=== PATIENT | male | born 1965 | race Caucasian/White ===

== ENCOUNTER 2019-04-14 01:28 | Inpatient (IN) | payer OTHER ==
[2019-04-14 02:58] LABS: ABS Basophils 0.1 10^3/ul (0-0.2); ABS Monocytes 0.9 10^3/ul (0-0.8); ABS Neutrophils 8.3 10^3/ul (1.5-7.7); Hematocrit 52 % (42-52); Hemoglobin 17.8 g/dL (14.0-18.0); Lymphocyte % 9.9 %; Mean Corpuscular HGB Conc 35 g/dL (31-36); Mean Corpuscular Hemoglobin 34 pg (27-31); Mean Corpuscular Volume 97 fL (80-94); Mean Platelet Volume 7.7 fL (7.4-10.4); Platelet Count 186 10^3/uL (150-450); Red Blood Count 5.33 10^6 /uL (4.18-5.48); Red Cell Distribution Width 13 % (10-15); White Blood Count 10.3 10^3/uL (3.5-10.8)
[2019-04-14 03:06] LABS: INR 1.06 (0.82-1.09)
[2019-04-14] MEDS ORDERED: NS 0.9% 1000 ML** 1,000 ML IV ONE ×2 (03:07→18:22)
[2019-04-14] MEDS ORDERED: Ketorolac INJ* 30 MG/ML 1 ML VIAL IV PUSH ONE (03:07)
[2019-04-14 03:15] LABS: Albumin 4.5 g/dL (3.2-5.2); Albumin/Globulin Ratio 1.4 (1-3); BUN/Creatinine Ratio 11.2 (8-20); C Reactive Protein 28.36 mg/L (<8.01); Calcium 9.1 mg/dL (8.6-10.3); EGFR African American 108.2 (>60); EGFR Non-African American 89.4 (>60); Globulin 3.3 g/dL (2-4); Potassium 3.7 mmol/L (3.5-5.0); Total Bilirubin 0.7 mg/dL (0.2-1.0); Total Protein 7.8 g/dL (6.4-8.9)
[2019-04-14] MEDS ORDERED: Iohexol 300* (CONTRAST) 10 ML SDV IV ONE (03:45)
--- NOTE | 2019-04-14 04:25 | ED ---
Abdominal Pain/Male - HPI Summary HPI Summary: Patient is a 53 y/o M presenting to the ED for a chief complaint of diffuse non- radiating abdominal pain that began on 04/13/19. Patient states that he ate 2 pizzas in quick succession after which he began to feel the diffuse abdominal pain, nausea, vomiting, diaphoresis, and diarrhea. Patient denies fever. Patient took Imodium for the diarrhea with limited relief. Patient has not had a bowel movement since 04/12/19. On 04/13/19, patient also admits drinking alcohol. Patient denies tobacco or drug use. Patient has a PMHx of HTN, anxiety , and depression. Allergies noted. - History of Current Complaint Chief Complaint: EDAbdPain Stated Complaint: ABD PAIN PER PT Time Seen by Provider: 04/14/19 02:30 Hx Obtained From: Patient Onset/Duration: Sudden Onset, Still Present Timing: Constant Severity Initially: Severe Severity Currently: Severe Pain Intensity: 9 Pain Scale Used: 0-10 Numeric Location: Diffuse Radiates: No Aggravating Factor(s): Nothing Alleviating Factor(s): Other: - Limited relief of diarrhea with Imodium Associated Signs And Symptoms: Positive: Nausea, Vomiting, Diarrhea, Other - Positive diaphoresis. Negative: Fever - Allergies/Home Medications Allergies/Adverse Reactions: Allergies Allergy/AdvReac Type Severity Reaction Status Date / Time No Known Allergies Allergy Verified 04/14/19 01:34 Home Medications: Home Medications Clonazepam 45 mg PO SEE INSTRUCTIONS 04/14/19 [History Confirmed 04/14/19] Duloxetine HCl 30 mg PO DAILY 04/14/19 [History Confirmed 04/14/19] Lisinopril 20 mg PO DAILY 04/14/19 [History Confirmed 04/14/19] PMH/Surg Hx/FS Hx/Imm Hx Previously Healthy: Yes Endocrine/Hematology History: Denies: Hx Diabetes Cardiovascular History: Reports: Hx Hypertension Denies: Hx Hypercholesterolemia Sensory History: Denies: Hx Legally Blind, Hx Deafness Opthamlomology History: Denies: Hx Legally Blind EENT History: Denies: Hx Deafness Psychiatric History: Reports: Hx Anxiety, Hx Depression - Surgical History Surgical History: None Surgery Procedure, Year, and Place: None Infectious Disease History: No Infectious Disease History: Denies: Traveled Outside the [place] in Last 30 Days - Family History Known Family History: Negative: Diabetes - Social History Occupation: Employed Full-time Lives: With Family Alcohol Use: Daily Hx Substance Use: No Substance Use Type: Reports: None Hx Tobacco Use: No Smoking Status (MU): Never Smoked Tobacco Review of Systems - ROS Summary Review of Systems Summary: Clonazepam 45 mg PO SEE INSTRUCTIONS 04/14/19 [History Confirmed 04/14/19] Duloxetine HCl 30 mg PO DAILY 04/14/19 [History Confirmed 04/14/19] Lisinopril 20 mg PO DAILY 04/14/19 [History Confirmed 04/14/19] Positive: Skin Diaphoresis. Negative: Fever Positive: Abdominal Pain - Diffuse, Vomiting, Diarrhea, Nausea All Other Systems Reviewed And Are Negative: Yes Physical Exam - Summary Physical Exam Summary: General: Well-developed, Well-nourished MALE. Moderate distress. HEENT: Normocephalic, Atraumatic. Eyes: Conjuctiva normal, PERRL. Ears: TMs within normal limits. Nares: (-) discharge, (-) erythema. Oropharynx: Clear, mucous membranes moist, (-) exudates. Neck: Soft, FROM, (-) lymphadenopathy, (-) thyromegaly, (-) JVD. Cardiovascular: Normal sinus rhythm, (-) murmur. Lungs: Clear to auscultation bilaterally (-) wheezes, (-) rales, (-) rhonchi. Abdomen: Non-distended, (-) organomegaly, normal bowel sounds. Abdomen is firm with diffuse moderate tenderness throughout. Back: (-) CVA tenderness Extremities: No edema. Skin: Warm, dry, (-) rash. Neuro: Alert and oriented x3, no focal deficits. Psychiatric: Mood normal, affect normal. Triage Information Reviewed: Yes Vital Signs On Initial Exam: Initial Vitals Temp Pulse Resp BP Pulse Ox 96.8 F 102 18 156/113 96 04/14/19 01:31 04/14/19 01:31 04/14/19 01:31 04/14/19 01:31 04/14/19 01:31 Vital Signs Reviewed: Yes Procedures - Sedation Patient Received Moderate/Deep Sedation with Procedure: No Diagnostics - Vital Signs Vital Signs Temp Pulse Resp BP Pulse Ox 04/14/19 03:35 79 164/94 91 04/14/19 03:20 98.0 F 04/14/19 03:04 88 147/100 93 04/14/19 03:00 85 94 04/14/19 02:59 90 94 04/14/19 01:31 96.8 F 102 18 156/113 96 - Laboratory Lab Results: Lab Results 04/14/19 04/14/19 04/14/19 Range/Units 02:50 02:50 02:50 WBC 10.3 (3.5-10.8) 10^3/uL RBC 5.33 (4.18-5.48) 10^6 /uL Hgb 17.8 (14.0-18.0) g/dL Hct 52 (42-52) % MCV 97 H (80-94) fL MCH 34 H (27-31) pg MCHC 35 (31-36) g/dL RDW 13 (10-15) % Plt Count 186 (150-450) 10^3/uL MPV 7.7 (7.4-10.4) fL Neut % (Auto) 80.4 % Lymph % (Auto) 9.9 % [place] % (Auto) 9.2 % Eos % (Auto) 0.0 % Baso % (Auto) 0.5 % Absolute Neuts (auto) 8.3 H (1.5-7.7) 10^3/ul Absolute Lymphs (auto) 1.0 (1.0-4.8) 10^3/ul Absolute Monos (auto) 0.9 H (0-0.8) 10^3/ul Absolute Eos (auto) 0.0 (0-0.6) 10^3/ul Absolute Basos (auto) 0.1 (0-0.2) 10^3/ul Absolute Nucleated RBC 0.0 10^3/ul Nucleated RBC % 0.0 INR (Anticoag Therapy) 1.06 (0.82-1.09) Sodium 134 L (135-145) mmol/L Potassium 3.7 (3.5-5.0) mmol/L Chloride 96 L (101-111) mmol/L Carbon Dioxide 24 (22-32) mmol/L Anion Gap 14 H (2-11) mmol/L BUN 10 (6-24) mg/dL Creatinine 0.89 (0.67-1.17) mg/dL Est GFR ( Amer) 108.2 (>60) Est GFR (Non-Af Amer) 89.4 (>60) BUN/Creatinine Ratio 11.2 (8-20) Glucose 148 H (70-100) mg/dL Lactic Acid (0.5-2.0) mmol/L Calcium 9.1 (8.6-10.3) mg/dL Total Bilirubin 0.70 (0.2-1.0) mg/dL AST 77 H (13-39) U/L ALT 77 H (7-52) U/L Alkaline Phosphatase 64 (34-104) U/L C-Reactive Protein 28.36 H (<8.01) mg/L Total Protein 7.8 (6.4-8.9) g/dL Albumin 4.5 (3.2-5.2) g/dL Globulin 3.3 (2-4) g/dL Albumin/Globulin Ratio 1.4 (1-3) Amylase 1206 H (29-103) U/L Lipase 3412 H (11.0-82.0) U/L Serum Alcohol 164 H (<10) mg/dL 04/14/19 Range/Units 02:50 WBC (3.5-10.8) 10^3/uL RBC (4.18-5.48) 10^6 /uL Hgb (14.0-18.0) g/dL Hct (42-52) % MCV (80-94) fL MCH (27-31) pg MCHC (31-36) g/dL RDW (10-15) % Plt Count (150-450) 10^3/uL MPV (7.4-10.4) fL Neut % (Auto) % Lymph % (Auto) % [place] % (Auto) % Eos % (Auto) % Baso % (Auto) % Absolute Neuts (auto) (1.5-7.7) 10^3/ul Absolute Lymphs (auto) (1.0-4.8) 10^3/ul Absolute Monos (auto) (0-0.8) 10^3/ul Absolute Eos (auto) (0-0.6) 10^3/ul Absolute Basos (auto) (0-0.2) 10^3/ul Absolute Nucleated RBC 10^3/ul Nucleated RBC % INR (Anticoag Therapy) (0.82-1.09) Sodium (135-145) mmol/L Potassium (3.5-5.0) mmol/L Chloride (101-111) mmol/L Carbon Dioxide (22-32) mmol/L Anion Gap (2-11) mmol/L BUN (6-24) mg/dL Creatinine (0.67-1.17) mg/dL Est GFR ( Amer) (>60) Est GFR (Non-Af Amer) (>60) BUN/Creatinine Ratio (8-20) Glucose (70-100) mg/dL Lactic Acid 2.3 H* (0.5-2.0) mmol/L Calcium (8.6-10.3) mg/dL Total Bilirubin (0.2-1.0) mg/dL AST (13-39) U/L ALT (7-52) U/L Alkaline Phosphatase (34-104) U/L C-Reactive Protein (<8.01) mg/L Total Protein (6.4-8.9) g/dL Albumin (3.2-5.2) g/dL Globulin (2-4) g/dL Albumin/Globulin Ratio (1-3) Amylase (29-103) U/L Lipase (11.0-82.0) U/L Serum Alcohol (<10) mg/dL Result Diagrams: 04/14/19 02:50 04/14/19 02:50 Lab Statement: Any lab studies that have been ordered have been reviewed, and results considered in the medical decision making process. - Radiology Chest X-ray Radiology Interpretation Completed By: ED Physician Summary of Radiographic Findings: Chest X-ray IMPRESSION: No infiltrate. No pleural effusion. Reviewed and interpreted by Dr. Myles; pending official radiology report. - CT Abdomen/Pelvis CT CT Interpretation Completed By: Radiologist Summary of CT Findings: Abdomen/Pelvis CT IMPRESSION: 1. Acute pancreatitis. 2. Mild hepatomegaly with fatty infiltration. 3. Minimal free fluid in the pelvis which is likely related to the pancreatitis. Reviewed by ED physician. Re-Evaluation - Re-Evaluation First Re-Evaluation Time: 05:17 Change: Unchanged Comment: At 05:17, upon re-evaluation, will give the patient morphine. Abdominal Pain Male Course/Dx - Course Course Of Treatment: 53-year-old male with severe abdominal pain. History of vomiting. Patient describes himself as a heavy alcohol drinker. Found to have significantly amylase and lipase as well as alcohol level. CT demonstrates acute pancreatitis. Patient given IV fluids and pain medication. Referred to hospitalist for admission. - Diagnoses Provider Diagnoses: Pancreatitis, Acute alcohol intoxication - Provider Notifications Discussed Care Of Patient With: Chayo Coyne - At 05:31, Dr. Chayo Coyne agrees to admit the patient to [facility] with a diagnosis of pancreatitis and acute alcohol intoxication. Time Discussed With Above Provider: 05:31 Instructed by Provider To: Admit As Inpatient Discharge ED - Sign-Out/Discharge Documenting (check all that apply): Patient Departure - Admit - Discharge Plan Condition: Stable Disposition: ADMITTED TO [facility] Referrals: [facility] [Outside] - Billing Disposition and Condition Condition: STABLE Disposition: Admitted to [facility] - Attestation Statements Document Initiated by Eder: Yes Documenting Scribe: Alyx Casillas Provider For Whom Scribe is Documenting (Include Credential): Gianna Mlyes MD Scribe Attestation: Alyx Martinez scribed for Gianna Myles MD on 04/14/19 at 0603. Scribe Documentation Reviewed: Yes Provider Attestation: The documentation as recorded by the Alyx balbuena accurately reflects the service I personally performed and the decisions made by Gianna valladares MD Status of Scribe Document: Viewed
[2019-04-14 05:03] LABS: Urine Appearance Clear; Urine Bacteria Absent (Absent); Urine Bilirubin Negative (Negative); Urine Blood 2+ (Negative); Urine Color Yellow; Urine Glucose 1+(50 mg/dL) (Negative); Urine Ketones 1+ (Negative); Urine Nitrite Negative (Negative); Urine Protein 1+(30 mg/dL) (Negative); Urine Red Blood Cell 1+(3-5/hpf) (Absent); Urine Specific Gravity 1.045 (1.010-1.030); Urine Squamous Epithelial Cell Present (Absent); Urine Urobilinogen Negative (Negative); Urine White Blood Cell Trace(0-5/hpf) (Absent)
[2019-04-14] MEDS ORDERED: Morphine 4 MG/ML VIAL (1 ml) 4 MG/ML VIAL IV ONE (05:17)
[2019-04-14] MEDS ORDERED: Morphine INJ* 2 MG/ML 1 ML SYRINGE (TWO MG - NEW SYRINGE VERSION) IV PRN (07:09)
[2019-04-14] MEDS ORDERED: Thiamine IV 100 MG, Folic Acid IV* 1 MG, Multiple Vitamin IV ADULT* 10 ML in D5NS 0.9% ... IV ONE (07:10)
[2019-04-14] MEDS ORDERED: NS 0.9% 1000 ML** 1,000 ML IV SCH (07:15)
--- NOTE | 2019-04-14 07:28 | HP ---
History of Present Illness - History of Present Illness Reason for Visit: abdominal pain History of Present Illness: 53 year old male with hx of depression and alcohol abuse presented with severe epigastric pain after binge drinking. Pain started around 11 pm last night after drinking 1/4 of a bottle of alcohol and pizza. He vomited multiple times ( no blood) before he called the ambulance. In the ED, CT abdomen showed pancreatitis, lipase and amylase were quite elevated. This is his first time having pancreatitis. Pt currently works at [employer]. He struggled with his alcoholism for a while and relapsed 6 months ago when he moved from [place] to [place] for his new job. The separation from his gf and the stress of starting a new job in a new city were enough to cause him to relapse. He had a psychiatrist back in [facility] who was prescribing him cymbalta for his depression which he is no longer on. Last drink around 11 pm last night. Never had withdrawals before. - Past Medical History Cardiac: HTN, Hyperlipidemia Review of Systems - Measurements Intake and Output: Intake and Output Last 24 Hours 04/12/19 04/13/19 04/14/19 04/15/19 06:59 06:59 06:59 06:59 Intake Total 1000 Balance 1000 Weight 250 lb Intake: IV Fluids 1000 - Review of Systems Constitutional Symptoms: Positive: Fatigue Dermatology: Positive: Normal HEENT: Positive: Normal Eyes: Positive: Normal Thyroid: Positive: Normal Pulmonary: Positive: Normal Cardiology: Positive: Normal Gastroenterology: Positive: Abdominal Pain, Nausea, Vomiting Endocrinology: Positive: Normal Neurology: Positive: Normal Objective Active Medications: Sodium Chloride (Ns 0.9% 1000 Ml) 1,000 mls @ 125 mls/hr IV Q8H [facility] Thiamine HCl 100 mg/ Folic Acid 1 mg/ Multivitamins 10 ml / Dextrose/Sodium Chloride 1,011.2 mls @ 252.8 mls/hr IV ED ONCE ONE Stop: 04/14/19 11:09 Morphine Sulfate (Morphine Inj (Syringe))*) 2 mg IV Q4H PRN PRN Reason: PAIN - SEVERE Vital Signs - 8 hr 04/14/19 04/14/19 04/14/19 01:31 02:59 03:00 Temperature 96.8 F Pulse Rate 102 90 85 Respiratory 18 Rate Blood Pressure 156/113 (mmHg) O2 Sat by Pulse 96 94 94 Oximetry 04/14/19 04/14/19 04/14/19 03:04 03:20 03:35 Temperature 98.0 F Pulse Rate 88 79 Respiratory Rate Blood Pressure 147/100 164/94 (mmHg) O2 Sat by Pulse 93 91 Oximetry 04/14/19 04/14/19 04/14/19 04:00 04:31 04:59 Temperature Pulse Rate 88 95 90 Respiratory Rate Blood Pressure 168/101 173/95 (mmHg) O2 Sat by Pulse 93 93 96 Oximetry 04/14/19 04/14/19 04/14/19 05:00 05:05 05:31 Temperature Pulse Rate 88 99 Respiratory 22 Rate Blood Pressure 164/108 (mmHg) O2 Sat by Pulse 94 95 Oximetry Oxygen Devices in Use Now: None Appearance: depressed mood, tearful. Ears/Nose/Mouth/Throat: NL Teeth, Lips, Gums, - - dry mucous membrane Neck: NL Appearance and Movements; NL JVP Respiratory: Symmetrical Chest Expansion and Respiratory Effort Cardiovascular: NL Sounds; No Murmurs; No JVD Abdominal: NL Sounds; No Tenderness; No Distention Extremities: No Edema Skin: No Rash or Ulcers Neurological: Alert and Oriented x 3, NL Sensation, NL Gait, NL Muscle Strength and Tone Result Diagrams: 04/14/19 02:50 04/14/19 02:50 Additional Lab and Data: Lab Results 04/14/19 04/14/19 04/14/19 Range/Units 02:50 02:50 02:50 WBC 10.3 (3.5-10.8) 10^3/uL RBC 5.33 (4.18-5.48) 10^6 /uL Hgb 17.8 (14.0-18.0) g/dL Hct 52 (42-52) % MCV 97 H (80-94) fL MCH 34 H (27-31) pg MCHC 35 (31-36) g/dL RDW 13 (10-15) % Plt Count 186 (150-450) 10^3/uL MPV 7.7 (7.4-10.4) fL Neut % (Auto) 80.4 % Lymph % (Auto) 9.9 % [place] % (Auto) 9.2 % Eos % (Auto) 0.0 % Baso % (Auto) 0.5 % Absolute Neuts (auto) 8.3 H (1.5-7.7) 10^3/ul Absolute Lymphs (auto) 1.0 (1.0-4.8) 10^3/ul Absolute Monos (auto) 0.9 H (0-0.8) 10^3/ul Absolute Eos (auto) 0.0 (0-0.6) 10^3/ul Absolute Basos (auto) 0.1 (0-0.2) 10^3/ul Absolute Nucleated RBC 0.0 10^3/ul Nucleated RBC % 0.0 INR (Anticoag Therapy) 1.06 (0.82-1.09) Sodium 134 L (135-145) mmol/L Potassium 3.7 (3.5-5.0) mmol/L Chloride 96 L (101-111) mmol/L Carbon Dioxide 24 (22-32) mmol/L Anion Gap 14 H (2-11) mmol/L BUN 10 (6-24) mg/dL Creatinine 0.89 (0.67-1.17) mg/dL Est GFR ( Amer) 108.2 (>60) Est GFR (Non-Af Amer) 89.4 (>60) BUN/Creatinine Ratio 11.2 (8-20) Glucose 148 H (70-100) mg/dL Lactic Acid (0.5-2.0) mmol/L Calcium 9.1 (8.6-10.3) mg/dL Total Bilirubin 0.70 (0.2-1.0) mg/dL AST 77 H (13-39) U/L ALT 77 H (7-52) U/L Alkaline Phosphatase 64 (34-104) U/L C-Reactive Protein 28.36 H (<8.01) mg/L Total Protein 7.8 (6.4-8.9) g/dL Albumin 4.5 (3.2-5.2) g/dL Globulin 3.3 (2-4) g/dL Albumin/Globulin Ratio 1.4 (1-3) Amylase 1206 H (29-103) U/L Lipase 3412 H (11.0-82.0) U/L Serum Alcohol 164 H (<10) mg/dL 04/14/19 Range/Units 02:50 WBC (3.5-10.8) 10^3/uL RBC (4.18-5.48) 10^6 /uL Hgb (14.0-18.0) g/dL Hct (42-52) % MCV (80-94) fL MCH (27-31) pg MCHC (31-36) g/dL RDW (10-15) % Plt Count (150-450) 10^3/uL MPV (7.4-10.4) fL Neut % (Auto) % Lymph % (Auto) % [place] % (Auto) % Eos % (Auto) % Baso % (Auto) % Absolute Neuts (auto) (1.5-7.7) 10^3/ul Absolute Lymphs (auto) (1.0-4.8) 10^3/ul Absolute Monos (auto) (0-0.8) 10^3/ul Absolute Eos (auto) (0-0.6) 10^3/ul Absolute Basos (auto) (0-0.2) 10^3/ul Absolute Nucleated RBC 10^3/ul Nucleated RBC % INR (Anticoag Therapy) (0.82-1.09) Sodium (135-145) mmol/L Potassium (3.5-5.0) mmol/L Chloride (101-111) mmol/L Carbon Dioxide (22-32) mmol/L Anion Gap (2-11) mmol/L BUN (6-24) mg/dL Creatinine (0.67-1.17) mg/dL Est GFR ( Amer) (>60) Est GFR (Non-Af Amer) (>60) BUN/Creatinine Ratio (8-20) Glucose (70-100) mg/dL Lactic Acid 2.3 H* (0.5-2.0) mmol/L Calcium (8.6-10.3) mg/dL Total Bilirubin (0.2-1.0) mg/dL AST (13-39) U/L ALT (7-52) U/L Alkaline Phosphatase (34-104) U/L C-Reactive Protein (<8.01) mg/L Total Protein (6.4-8.9) g/dL Albumin (3.2-5.2) g/dL Globulin (2-4) g/dL Albumin/Globulin Ratio (1-3) Amylase (29-103) U/L Lipase (11.0-82.0) U/L Serum Alcohol (<10) mg/dL Assess/Plan/Problems-Billing Assessment: - Patient Problems (1) Pancreatitis Current Visit: Yes Status: Acute Code(s): K85.90 - ACUTE PANCREATITIS WITHOUT NECROSIS OR INFECTION, UNSP SNOMED Code(s): 27526238 Comment: secondary to alcoholism mild pancreatitis, no organ failure very dehydrated aggressive fluid management, NPO, morphine PRN liver US (2) Alcohol abuse Current Visit: Yes Status: Acute Code(s): F10.10 - ALCOHOL ABUSE, UNCOMPLICATED SNOMED Code(s): 12587551 Comment: last drink at 11 pm last night. banana bag CIWA protocol low maddrey score health care social worker consult (3) DVT prophylaxis Current Visit: Yes Status: Acute Code(s): Z29.9 - ENCOUNTER FOR PROPHYLACTIC MEASURES, UNSPECIFIED SNOMED Code(s): 442917221 Comment: heparin sc (4) Full code status Current Visit: Yes Status: Acute Code(s): Z78.9 - OTHER SPECIFIED HEALTH STATUS SNOMED Code(s): 746323404 (5) Depression Current Visit: Yes Status: Acute Code(s): F32.9 - MAJOR DEPRESSIVE DISORDER , SINGLE EPISODE, UNSPECIFIED SNOMED Code(s): 18740553 Comment: not on any medications, he used to be on cymbalta. team to consult psychologist personnel consult placed
[2019-04-14 07:57] LABS: HDL Cholesterol 76.2 mg/dL; Magnesium 1.3 mg/dL (1.9-2.7)
[2019-04-14] MEDS ORDERED: Lorazepam PYXIS KEY PRN ×2 (08:02→10:13)
[2019-04-14] MEDS ORDERED: LORazepam INJ* 2 MG/ML 1 ML VIAL IV PUSH PRN ×2 (08:02→08:17)
[2019-04-14] MEDS ORDERED: HYDROmorphone INJ* 0.5 MG/0.5 ML SYRINGE IV PRN (08:06)
[2019-04-14] MEDS ORDERED: Ondansetron INJ* 2 MG/ML VIAL IV PRN (08:19)
[2019-04-14] MEDS ORDERED: HYDROmorphone INJ1* 1 MG/ML SYRINGE IV PRN (09:00)
[2019-04-14] MEDS: LORazepam INJ* 2 MG/ML 1 ML VIAL IM SCH ×6 (09:34→20:48)
[2019-04-14] MEDS ORDERED: hydrALAZINE IV* 20 MG/ML VIAL IV SLOW PU PRN (10:16)
[2019-04-14] MEDS ORDERED: LORazepam INJ* 2 MG/ML 1 ML VIAL IV PUSH SCH ×2 (11:30→12:00)
[2019-04-14] MEDS: Enoxaparin(*) 40 MG/0.4 ML SYR SUBCUT SCH (11:46)
[2019-04-14 12:35] LABS: TSH (Thyroid Stimulating Horm) 4.42 mcIU/mL (0.34-5.60)
[2019-04-14] MEDS: Diazepam INJ* 5 MG/ML 10 ML VIAL (50 MG TOTAL) IV SCH ×2 (15:03→20:49)
[2019-04-14] MEDS: NS 0.9% 1000 ML** 1,000 ML IV SCH ×2 (15:04→22:34)
--- NOTE | 2019-04-14 17:10 | PN ---
Subjective Date of Service: 04/14/19 Interval History: Hd 2 on 04/14 53 y/o M with history of HTN and alcohol use disorder presents with acute severe epigastric pain associated with nausea and vomiting after drinking 4 drinks of vodka. Found to have Pancreatitis, Anion gap MA and alcohol intoxication. Has abdominal pain- diffuse -has tremor with sweating and flushing. Denies hallucination, nausea or vomiting Objective Active Medications: Diazepam (Valium Inj) 5 mg IV Q6H [facility] Stop: 04/15/19 03:01 Last Admin: 04/14/19 15:03 Dose: 5 mg Enoxaparin Sodium (Lovenox(*)) 40 mg SUBCUT Q24H [facility] Last Admin: 04/14/19 11:46 Dose: 40 mg Folic Acid (Folic Acid Iv 1 Mg*) 1 mg IV DAILY [facility] Hydralazine HCl (Apresoline Iv*) 5 mg IV SLOW PU Q6H PRN PRN Reason: SBP>170 Hydromorphone HCl (Dilaudid Inj1s*) 0.5 mg IV Q2H PRN PRN Reason: PAIN - SEVERE Last Admin: 04/14/19 08:20 Dose: 0.5 mg Thiamine HCl 100 mg/ Sodium (Chloride) 51 mls @ 102 mls/hr IV Q24H [facility] Sodium Chloride (Ns 0.9% 1000 Ml) 1,000 mls @ 175 mls/hr IV Q8H [facility] Last Admin: 04/14/19 15:04 Dose: 175 mls/hr Lorazepam (Ativan Inj*) 0 mg IV PUSH Q2H PRN; Protocol PRN Reason: AGITATION Lorazepam (Ativan Inj*) 0 - 6 mg IM .PER [place] PROTOCOL [facility]; Protocol Last Admin: 04/14/19 16:21 Dose: 2 mg Miscellaneous (Ativan Pyxis Thornton) 1 ea N/A .ATIVAN IV THORNTON PRN PRN Reason: PYXIS THORNTON Ondansetron HCl (Zofran Inj*) 4 mg IV Q6H PRN PRN Reason: NAUSEA Vital Signs - 8 hr 04/14/19 04/14/19 04/14/19 09:05 09:14 09:34 Temperature 99.1 F 98.0 F Pulse Rate 95 116 Respiratory 16 16 16 Rate Blood Pressure 174/103 178/99 (mmHg) O2 Sat by Pulse 99 93 Oximetry 11/13/19 11/13/19 11/13/19 10:20 11:26 11:29 Temperature 97.9 F Pulse Rate 117 Respiratory 20 20 16 Rate Blood Pressure 160/98 (mmHg) O2 Sat by Pulse 95 Oximetry 04/14/19 04/14/19 04/14/19 11:46 12:46 13:17 Temperature 98.0 F Pulse Rate 136 Respiratory 20 20 20 Rate Blood Pressure 150/97 (mmHg) O2 Sat by Pulse 94 Oximetry 04/14/19 04/14/19 04/14/19 13:38 13:39 15:01 Temperature 99.1 F Pulse Rate 132 Respiratory 20 20 20 Rate Blood Pressure 156/99 (mmHg) O2 Sat by Pulse 96 Oximetry 04/14/19 04/14/19 04/14/19 15:03 15:09 16:21 Temperature Pulse Rate Respiratory 20 20 20 Rate Blood Pressure (mmHg) O2 Sat by Pulse Oximetry Oxygen Devices in Use Now: None Exam: Patient is lying on abed with no acute distress HEENT: Face is flushed. Nystagmus present. Sclera anicteric Lungs- Clear with no added sounds heart: S1/S2 heard with no murmur Abdomen: Soft, nondistended and no bruising. Tenderness on all over abdomen. Bowel sound heard Extremities: No swelling. tremors present Neuro: Alert, oriented and coperative. Result Diagrams: 04/14/19 02:50 04/14/19 02:50 Additional Lab and Data: Lab Results 04/14/19 04/14/19 04/14/19 Range/Units 02:50 02:50 02:50 WBC 10.3 (3.5-10.8) 10^3/uL RBC 5.33 (4.18-5.48) 10^6 /uL Hgb 17.8 (14.0-18.0) g/dL Hct 52 (42-52) % MCV 97 H (80-94) fL MCH 34 H (27-31) pg MCHC 35 (31-36) g/dL RDW 13 (10-15) % Plt Count 186 (150-450) 10^3/uL MPV 7.7 (7.4-10.4) fL Neut % (Auto) 80.4 % Lymph % (Auto) 9.9 % Page % (Auto) 9.2 % Eos % (Auto) 0.0 % Baso % (Auto) 0.5 % Absolute Neuts (auto) 8.3 H (1.5-7.7) 10^3/ul Absolute Lymphs (auto) 1.0 (1.0-4.8) 10^3/ul Absolute Monos (auto) 0.9 H (0-0.8) 10^3/ul Absolute Eos (auto) 0.0 (0-0.6) 10^3/ul Absolute Basos (auto) 0.1 (0-0.2) 10^3/ul Absolute Nucleated RBC 0.0 10^3/ul Nucleated RBC % 0.0 INR (Anticoag Therapy) 1.06 (0.82-1.09) Sodium 134 L (135-145) mmol/L Potassium 3.7 (3.5-5.0) mmol/L Chloride 96 L (101-111) mmol/L Carbon Dioxide 24 (22-32) mmol/L Anion Gap 14 H (2-11) mmol/L BUN 10 (6-24) mg/dL Creatinine 0.89 (0.67-1.17) mg/dL Est GFR ( Amer) 108.2 (>60) Est GFR (Non-Af Amer) 89.4 (>60) BUN/Creatinine Ratio 11.2 (8-20) Glucose 148 H (70-100) mg/dL Lactic Acid (0.5-2.0) mmol/L Calcium 9.1 (8.6-10.3) mg/dL Total Bilirubin 0.70 (0.2-1.0) mg/dL AST 77 H (13-39) U/L ALT 77 H (7-52) U/L Alkaline Phosphatase 64 (34-104) U/L C-Reactive Protein 28.36 H (<8.01) mg/L Total Protein 7.8 (6.4-8.9) g/dL Albumin 4.5 (3.2-5.2) g/dL Globulin 3.3 (2-4) g/dL Albumin/Globulin Ratio 1.4 (1-3) Amylase 1206 H (29-103) U/L Lipase 3412 H (11.0-82.0) U/L Serum Alcohol 164 H (<10) mg/dL 04/14/19 Range/Units 02:50 WBC (3.5-10.8) 10^3/uL RBC (4.18-5.48) 10^6 /uL Hgb (14.0-18.0) g/dL Hct (42-52) % MCV (80-94) fL MCH (27-31) pg MCHC (31-36) g/dL RDW (10-15) % Plt Count (150-450) 10^3/uL MPV (7.4-10.4) fL Neut % (Auto) % Lymph % (Auto) % Page % (Auto) % Eos % (Auto) % Baso % (Auto) % Absolute Neuts (auto) (1.5-7.7) 10^3/ul Absolute Lymphs (auto) (1.0-4.8) 10^3/ul Absolute Monos (auto) (0-0.8) 10^3/ul Absolute Eos (auto) (0-0.6) 10^3/ul Absolute Basos (auto) (0-0.2) 10^3/ul Absolute Nucleated RBC 10^3/ul Nucleated RBC % INR (Anticoag Therapy) (0.82-1.09) Sodium (135-145) mmol/L Potassium (3.5-5.0) mmol/L Chloride (101-111) mmol/L Carbon Dioxide (22-32) mmol/L Anion Gap (2-11) mmol/L BUN (6-24) mg/dL Creatinine (0.67-1.17) mg/dL Est GFR ( Amer) (>60) Est GFR (Non-Af Amer) (>60) BUN/Creatinine Ratio (8-20) Glucose (70-100) mg/dL Lactic Acid 2.3 H* (0.5-2.0) mmol/L Calcium (8.6-10.3) mg/dL Total Bilirubin (0.2-1.0) mg/dL AST (13-39) U/L ALT (7-52) U/L Alkaline Phosphatase (34-104) U/L C-Reactive Protein (<8.01) mg/L Total Protein (6.4-8.9) g/dL Albumin (3.2-5.2) g/dL Globulin (2-4) g/dL Albumin/Globulin Ratio (1-3) Amylase (29-103) U/L Lipase (11.0-82.0) U/L Serum Alcohol (<10) mg/dL Assess/Plan/Problems-Billing Assessment: 53 y/o M with history of HTN and alcohol use disorder presents with acute severe epigastric pain associated with nausea and vomiting after drinking 4 drinks of vodka. Found to have Pancreatitis, Anion gap MA and alcohol intoxication. - Patient Problems (1) Pancreatitis Current Visit: Yes Status: Acute Code(s): K85.90 - ACUTE PANCREATITIS WITHOUT NECROSIS OR INFECTION, UNSP SNOMED Code(s): 15451500 Comment: -secondary to alcoholism - drinks 12-15 drinks per day; yesterday he drank 4 glass of vodka -Abdomen US negative for GB stones;+ hepatic steatosis -elevated amyalse and lipase -CT shows acute pancreatitis with minimal free fluid on pelvis -His BISAP score is 1-low mrtality is risk -Warwick score at arrival was 0 -We will keep him NPO, give IV fluids and control pain with hydromorphone; no e/ o infection -we will closely monitoring him and trend lactic acid (2) High anion gap metabolic acidosis Current Visit: Yes Status: Acute Code(s): E87.2 - ACIDOSIS SNOMED Code(s) : 64468071 Comment: -From alcohol intoxication - urine ketones positive -we will give fluids (3) Alcohol use disorder Current Visit: Yes Status: Acute Code(s): YGZ2413 - SNOMED Code(s): 4999366 Comment: -has been drinking 12-15 drinks per day for years -was sober for 6 years 15 years ago. -recently moved to [place] from [place] -trigerred by stress -serum alcohol 164 -has sx of withdrawal -scoring on WAM- on standing valium and prn ativan -if persistently scores high then may need ICU tranfer. -on thiamine and folic acid -we will monitor closely (4) Depression Current Visit: Yes Status: Acute Code(s): F32.9 - MAJOR DEPRESSIVE DISORDER , SINGLE EPISODE, UNSPECIFIED SNOMED Code(s): 06795404 Comment: -not on any medications, he used to be on cymbalta. -social science professor consult placed Once he improves from current illness, we will put him on SSRI (5) DVT prophylaxis Current Visit: Yes Status: Acute Code(s): Z29.9 - ENCOUNTER FOR PROPHYLACTIC MEASURES, UNSPECIFIED SNOMED Code(s): 596800215 Comment: -on lovenox (6) Full code status Current Visit: Yes Status: Acute Code(s): Z78.9 - OTHER SPECIFIED HEALTH STATUS SNOMED Code(s): 109099803 Status and Disposition: Inpatient Attending: Virginia Asif Attestation Documenting Resident: Valeriano Stanton Supervising Physician: Virginia Asif Attending/Supervising Physician Comment: Agree with resident note. Attending Addendum 53M PMH AUD, HTN who presented w acute pancreatitis (BiSAP 1) and has sig EtOH wdrawal with no hx of seizures #ETOH w/drawal-High CIWA scores but responsive to standing valium and sx triggered, persistent tachycardia will offer low dose BB but ensure aggressive fluids given panc -Low threshold for GGT, though resting comfortably all afternoon thus reasnoable to keep on floor for now #Panc: Improving pain, if able to tolearte diet will trial clears tomorrow Attestation: This service has been performed in part by a resident under the direction of a teaching physician.I, Virginia Asif, performed the service, or was physically present during the critical, or thornton portions of the service, furnished by the resident. I participated in the management of the patient.
[2019-04-14] MEDS ORDERED: Magnesium Sulf 4 GM/100 ML IV* 4,000 MG/100 ML BAG IVPB ONE (18:00)
[2019-04-14] MEDS ORDERED: Metoprolol Tartrate IV* 1 MG/ML 5 ML VIAL IV PRN (18:23)
[2019-04-15] MEDS: LORazepam INJ* 2 MG/ML 1 ML VIAL IM SCH ×3 (00:30→06:33)
[2019-04-15] MEDS: Diazepam INJ* 5 MG/ML 10 ML VIAL (50 MG TOTAL) IV SCH (03:06)
[2019-04-15] MEDS: NS 0.9% 1000 ML** 1,000 ML IV SCH ×3 (06:33→15:35)
[2019-04-15 06:46] LABS: BUN/Creatinine Ratio 12.9 (8-20); Calcium 7.6 mg/dL (8.6-10.3); EGFR African American 114.1 (>60); EGFR Non-African American 94.3 (>60); Potassium 3.8 mmol/L (3.5-5.0)
--- NOTE | 2019-04-15 06:46 | PN ---
Subjective Date of Service: 04/15/19 Interval History: Hd 3 on 04/15 53 y/o M with history of HTN and alcohol use disorder presents with acute severe epigastric pain associated with nausea and vomiting after drinking 4 drinks of vodka. Found to have Pancreatitis, Anion gap MA and alcohol intoxication. stay c/b alcohol withdrawal Overnight- scoring on [facility] but responding to ativan; lethargic and difficult to arouse; BP of 186/108 Vitals; Tachycardia(improving) with hypertension Denies abd pain, nausea and vomiting No tremor, sweating Objective Active Medications: Enoxaparin Sodium (Lovenox(*)) 40 mg SUBCUT Q24H [facility] Last Admin: 04/14/19 11:46 Dose: 40 mg Folic Acid (Folic Acid Iv 1 Mg*) 1 mg IV DAILY [facility] Hydralazine HCl (Apresoline Iv*) 5 mg IV SLOW PU Q6H PRN PRN Reason: SBP>170 Last Admin: 04/14/19 22:21 Dose: 5 mg Hydromorphone HCl (Dilaudid Inj1s*) 0.5 mg IV Q2H PRN PRN Reason: PAIN - SEVERE Last Admin: 04/14/19 08:20 Dose: 0.5 mg Thiamine HCl 100 mg/ Sodium (Chloride) 51 mls @ 102 mls/hr IV Q24H [facility] Sodium Chloride (Ns 0.9% 1000 Ml) 1,000 mls @ 175 mls/hr IV Q8H [facility] Last Admin: 04/15/19 06:33 Dose: 175 mls/hr Lorazepam (Ativan Inj*) 0 mg IV PUSH Q2H PRN; Protocol PRN Reason: AGITATION Lorazepam (Ativan Inj*) 0 - 6 mg IM .PER [facility] PROTOCOL [facility]; Protocol Last Admin: 04/15/19 06:33 Dose: 1 mg Metoprolol Tartrate (Lopressor Iv*) 5 mg IV Q6H PRN PRN Reason: HR>140 for 5 minutes Miscellaneous (Ativan Pyxis Thornton) 1 ea N/A .ATIVAN IV THORNTON PRN PRN Reason: PYXIS THORNTON Ondansetron HCl (Zofran Inj*) 4 mg IV Q6H PRN PRN Reason: NAUSEA Vital Signs - 8 hr 04/14/19 04/14/19 04/15/19 22:49 22:50 00:00 Temperature Pulse Rate 134 Respiratory 20 24 Rate Blood Pressure 146/82 (mmHg) O2 Sat by Pulse 95 Oximetry 04/15/19 04/15/19 04/15/19 00:12 00:30 01:30 Temperature 98.8 F Pulse Rate 130 Respiratory 24 24 20 Rate Blood Pressure 149/86 (mmHg) O2 Sat by Pulse 95 Oximetry 04/15/19 04/15/19 04/15/19 02:00 02:10 02:27 Temperature 97.9 F Pulse Rate 127 Respiratory 20 20 20 Rate Blood Pressure 168/110 (mmHg) O2 Sat by Pulse 95 Oximetry 04/15/19 04/15/19 04/15/19 03:06 03:27 04:00 Temperature Pulse Rate Respiratory 20 20 20 Rate Blood Pressure (mmHg) O2 Sat by Pulse Oximetry 04/15/19 04/15/19 04/15/19 04:17 06:00 06:15 Temperature 97.9 F 98 F Pulse Rate 119 127 Respiratory 20 20 20 Rate Blood Pressure 155/82 168/94 (mmHg) O2 Sat by Pulse 97 95 Oximetry 04/15/19 06:33 Temperature Pulse Rate Respiratory 20 Rate Blood Pressure (mmHg) O2 Sat by Pulse Oximetry Oxygen Devices in Use Now: None Exam: Patient is lying on abed with no acute distress HEENT: Face is flushed. Sclera anicteric Lungs- Clear with no added sounds heart: S1/S2 heard with no murmur Abdomen: Soft, nondistended and no bruising. Nontender. Bowel sound heard Extremities: No swelling. tremors present Neuro: Alert, oriented and coperative. Result Diagrams: 04/15/19 06:12 04/15/19 06:12 Additional Lab and Data: Lab Results 04/14/19 04/14/19 04/14/19 Range/Units 02:50 02:50 02:50 WBC 10.3 (3.5-10.8) 10^3/uL RBC 5.33 (4.18-5.48) 10^6 /uL Hgb 17.8 (14.0-18.0) g/dL Hct 52 (42-52) % MCV 97 H (80-94) fL MCH 34 H (27-31) pg MCHC 35 (31-36) g/dL RDW 13 (10-15) % Plt Count 186 (150-450) 10^3/uL MPV 7.7 (7.4-10.4) fL Neut % (Auto) 80.4 % Lymph % (Auto) 9.9 % Howell % (Auto) 9.2 % Eos % (Auto) 0.0 % Baso % (Auto) 0.5 % Absolute Neuts (auto) 8.3 H (1.5-7.7) 10^3/ul Absolute Lymphs (auto) 1.0 (1.0-4.8) 10^3/ul Absolute Monos (auto) 0.9 H (0-0.8) 10^3/ul Absolute Eos (auto) 0.0 (0-0.6) 10^3/ul Absolute Basos (auto) 0.1 (0-0.2) 10^3/ul Absolute Nucleated RBC 0.0 10^3/ul Nucleated RBC % 0.0 INR (Anticoag Therapy) 1.06 (0.82-1.09) Sodium 134 L (135-145) mmol/L Potassium 3.7 (3.5-5.0) mmol/L Chloride 96 L (101-111) mmol/L Carbon Dioxide 24 (22-32) mmol/L Anion Gap 14 H (2-11) mmol/L BUN 10 (6-24) mg/dL Creatinine 0.89 (0.67-1.17) mg/dL Est GFR ( Amer) 108.2 (>60) Est GFR (Non-Af Amer) 89.4 (>60) BUN/Creatinine Ratio 11.2 (8-20) Glucose 148 H (70-100) mg/dL Lactic Acid (0.5-2.0) mmol/L Calcium 9.1 (8.6-10.3) mg/dL Total Bilirubin 0.70 (0.2-1.0) mg/dL AST 77 H (13-39) U/L ALT 77 H (7-52) U/L Alkaline Phosphatase 64 (34-104) U/L C-Reactive Protein 28.36 H (<8.01) mg/L Total Protein 7.8 (6.4-8.9) g/dL Albumin 4.5 (3.2-5.2) g/dL Globulin 3.3 (2-4) g/dL Albumin/Globulin Ratio 1.4 (1-3) Amylase 1206 H (29-103) U/L Lipase 3412 H (11.0-82.0) U/L Serum Alcohol 164 H (<10) mg/dL 04/14/19 Range/Units 02:50 WBC (3.5-10.8) 10^3/uL RBC (4.18-5.48) 10^6 /uL Hgb (14.0-18.0) g/dL Hct (42-52) % MCV (80-94) fL MCH (27-31) pg MCHC (31-36) g/dL RDW (10-15) % Plt Count (150-450) 10^3/uL MPV (7.4-10.4) fL Neut % (Auto) % Lymph % (Auto) % Howell % (Auto) % Eos % (Auto) % Baso % (Auto) % Absolute Neuts (auto) (1.5-7.7) 10^3/ul Absolute Lymphs (auto) (1.0-4.8) 10^3/ul Absolute Monos (auto) (0-0.8) 10^3/ul Absolute Eos (auto) (0-0.6) 10^3/ul Absolute Basos (auto) (0-0.2) 10^3/ul Absolute Nucleated RBC 10^3/ul Nucleated RBC % INR (Anticoag Therapy) (0.82-1.09) Sodium (135-145) mmol/L Potassium (3.5-5.0) mmol/L Chloride (101-111) mmol/L Carbon Dioxide (22-32) mmol/L Anion Gap (2-11) mmol/L BUN (6-24) mg/dL Creatinine (0.67-1.17) mg/dL Est GFR ( Amer) (>60) Est GFR (Non-Af Amer) (>60) BUN/Creatinine Ratio (8-20) Glucose (70-100) mg/dL Lactic Acid 2.3 H* (0.5-2.0) mmol/L Calcium (8.6-10.3) mg/dL Total Bilirubin (0.2-1.0) mg/dL AST (13-39) U/L ALT (7-52) U/L Alkaline Phosphatase (34-104) U/L C-Reactive Protein (<8.01) mg/L Total Protein (6.4-8.9) g/dL Albumin (3.2-5.2) g/dL Globulin (2-4) g/dL Albumin/Globulin Ratio (1-3) Amylase (29-103) U/L Lipase (11.0-82.0) U/L Serum Alcohol (<10) mg/dL Assess/Plan/Problems-Billing Assessment: 53 y/o M with history of HTN and alcohol use disorder presents with acute severe epigastric pain associated with nausea and vomiting after drinking 4 drinks of vodka. Found to have Pancreatitis, Anion gap MA and alcohol intoxication. stay c/b withdrawal - Patient Problems (1) Pancreatitis Current Visit: Yes Status: Acute Code(s): K85.90 - ACUTE PANCREATITIS WITHOUT NECROSIS OR INFECTION, UNSP SNOMED Code(s): 55307297 Comment: -Improving; no symptom and sign -lactic acid normal -WBC slightly elevated -Calcium 7.6; we will recheck again at 4 pm -clear liquid diet; if tolerates may advance -On IVF (2) High anion gap metabolic acidosis Current Visit: Yes Status: Acute Code(s): E87.2 - ACIDOSIS SNOMED Code(s) : 28009417 Comment: -resolved (3) Alcohol use disorder Current Visit: Yes Status: Acute Code(s): AHB3972 - SNOMED Code(s): 0297113 Comment: -has been drinking 12-15 drinks per day for years -was sober for 6 years 15 years ago. -recently moved to [place] from [place] -trigerred by stress -serum alcohol 164 -has sx of withdrawal -scoring on WAM- on standing valium and prn ativan; responding well and score coming down -on thiamine and folic acid -we will monitor closely (4) Depression Current Visit: Yes Status: Acute Code(s): F32.9 - MAJOR DEPRESSIVE DISORDER , SINGLE EPISODE, UNSPECIFIED SNOMED Code(s): 59365067 Comment: -health care social worker consult placed -started on cymbalta (5) DVT prophylaxis Current Visit: Yes Status: Acute Code(s): Z29.9 - ENCOUNTER FOR PROPHYLACTIC MEASURES, UNSPECIFIED SNOMED Code(s): 569119786 Comment: -on lovenox (6) Full code status Current Visit: Yes Status: Acute Code(s): Z78.9 - OTHER SPECIFIED HEALTH STATUS SNOMED Code(s): 125081149 Status and Disposition: Inpatient Attending: Virginia Asif Attestation Documenting Resident: Valeriano Stanton Supervising Physician: Virginia Asif Attending/Supervising Physician Comment: 53M PMH AUD, HTN who presented w acute pancreatitis (BiSAP 1) and has sig EtOH wdrawal with no hx of seizures #ETOH w/drawal-High CIWA scores but now improving sig #Panc: Improving pain, if able to tolearte diet possible d/c tomorrow Attestation: This service has been performed in part by a resident under the direction of a teaching physician.I, Virginia Asif, performed the service, or was physically present during the critical, or thornton portions of the service, furnished by the resident. I participated in the management of the patient.
[2019-04-15 06:47] LABS: ABS Lymphocytes 0.8 10^3/ul (1.0-4.8); ABS Monocytes 0.9 10^3/ul (0-0.8); ABS Neutrophils 9.6 10^3/ul (1.5-7.7); Eosinophil % 0.4 %; Hematocrit 43 % (42-52); Hemoglobin 14.8 g/dL (14.0-18.0); Lymphocyte % 7.2 %; Mean Corpuscular HGB Conc 35 g/dL (31-36); Mean Corpuscular Hemoglobin 34 pg (27-31); Mean Corpuscular Volume 98 fL (80-94); Mean Platelet Volume 8.1 fL (7.4-10.4); Platelet Count 134 10^3/uL (150-450); Red Blood Count 4.33 10^6 /uL (4.18-5.48); Red Cell Distribution Width 14 % (10-15); White Blood Count 11.4 10^3/uL (3.5-10.8)
[2019-04-15] MEDS: Thiamine INJ* 100 MG in NS 0.9% 50 ML* 50 ML IV SCH (10:58)
[2019-04-15] MEDS: Enoxaparin(*) 40 MG/0.4 ML SYR SUBCUT SCH (11:01)
[2019-04-15] MEDS: Lisinopril TAB* 10 MG PO SCH (11:01)
[2019-04-15] MEDS: Folic Acid IV* 1 MG/0.2 ML SYRINGE IV SCH (11:55)
[2019-04-15 16:08] LABS: Albumin 3.7 g/dL (3.2-5.2); Albumin/Globulin Ratio 1.2 (1-3); Calcium 7.7 mg/dL (8.6-10.3); Indirect Bilirubin 0.8 mg/dL (0.3-1.0); Total Bilirubin 1.1 mg/dL (0.2-1.0); Total Protein 6.7 g/dL (6.4-8.9)
[2019-04-15] MEDS ORDERED: LORazepam INJ* 2 MG/ML 1 ML VIAL IV PUSH PRN (17:19)
[2019-04-15] MEDS ORDERED: traMADol TAB* 50 MG PO PRN (17:25)
--- NOTE | 2019-04-15 17:29 | PN ---
Hospitalist Progress Note Date of Service: 04/15/19 Update in plan Pt has done well thru day #Pancreatitis-tolerating clears, advance to low fat -Will d/c fluids tonight at 11PM #WAM: Pt with mild withdrawal sx, though out of window for seizure and improved quite a bit. -Will d/c WAM start on Librium standing taper 25 TID, then 25 BID, then 25 q day then stop Hopeful for d/c tomorrow
[2019-04-15] MEDS: chlordiazePOXIDE CAP* 25 MG PO SCH ×2 (18:25→21:53)
[2019-04-16 05:44] LABS: ABS Eosinophils 0.1 10^3/ul (0-0.6); ABS Lymphocytes 0.9 10^3/ul (1.0-4.8); ABS Monocytes 0.7 10^3/ul (0-0.8); ABS Neutrophils 8.5 10^3/ul (1.5-7.7); Eosinophil % 1.4 %; Hematocrit 39 % (42-52); Hemoglobin 13.5 g/dL (14.0-18.0); Lymphocyte % 8.8 %; Mean Corpuscular HGB Conc 35 g/dL (31-36); Mean Corpuscular Hemoglobin 35 pg (27-31); Mean Corpuscular Volume 98 fL (80-94); Mean Platelet Volume 8.4 fL (7.4-10.4); Platelet Count 131 10^3/uL (150-450); Red Blood Count 3.92 10^6 /uL (4.18-5.48); Red Cell Distribution Width 14 % (10-15); White Blood Count 10.4 10^3/uL (3.5-10.8)
[2019-04-16 06:06] LABS: BUN/Creatinine Ratio 11.4 (8-20); Calcium 7.9 mg/dL (8.6-10.3); EGFR African American 109.6 (>60); EGFR Non-African American 90.6 (>60); Potassium 3.6 mmol/L (3.5-5.0)
--- NOTE | 2019-04-16 06:48 | PN ---
Subjective Date of Service: 04/16/19 Interval History: HD 3 on 04/16 53 y/o M with history of HTN and alcohol use disorder presents with acute severe epigastric pain associated with nausea and vomiting after drinking 4 drinks of vodka. Found to have Pancreatitis, Anion gap MA and alcohol intoxication. stay c/b alcohol withdrawal Overnight- No acute events VItals stable; although tachycardic feels good. denies abdominal pain, nausea or vomiting tolerated diet well Objective Active Medications: Chlordiazepoxide (Librium Cap*) 25 mg PO TID [facility] Stop: 04/16/19 09:01 Last Admin: 04/15/19 21:53 Dose: 25 mg Duloxetine HCl (Cymbalta Cap*) 30 mg PO DAILY [facility] Enoxaparin Sodium (Lovenox(*)) 40 mg SUBCUT Q24H [facility] Last Admin: 04/15/19 11:01 Dose: 40 mg Folic Acid (Folic Acid Iv 1 Mg*) 1 mg IV DAILY [facility] Last Admin: 04/15/19 11:55 Dose: 1 mg Hydralazine HCl (Apresoline Iv*) 5 mg IV SLOW PU Q6H PRN PRN Reason: SBP>170 Last Admin: 04/14/19 22:21 Dose: 5 mg Thiamine HCl 100 mg/ Sodium (Chloride) 51 mls @ 102 mls/hr IV Q24H [facility] Last Admin: 04/15/19 10:58 Dose: 102 mls/hr Lisinopril (Prinivil Tab*) 20 mg PO DAILY [facility] Last Admin: 04/15/19 11:01 Dose: 20 mg Metoprolol Tartrate (Lopressor Iv*) 5 mg IV Q6H PRN PRN Reason: HR>140 for 5 minutes Ondansetron HCl (Zofran Inj*) 4 mg IV Q6H PRN PRN Reason: NAUSEA Tramadol HCl (Ultram*) 50 mg PO Q6H PRN PRN Reason: PAIN - MODERATE Vital Signs - 8 hr 04/15/19 04/15/19 04/16/19 22:53 23:53 03:15 Temperature 98.3 F 97.6 F Pulse Rate 117 114 Respiratory 16 18 20 Rate Blood Pressure 158/82 168/64 (mmHg) O2 Sat by Pulse 96 98 Oximetry Oxygen Devices in Use Now: None Exam: Patient is lying on abed with no acute distress HEENT: Face is flushed. Sclera anicteric Lungs- Clear with no added sounds heart: S1/S2 heard with no murmur Abdomen: Soft, nondistended and no bruising. Nontender. Bowel sound heard Extremities: No swelling. tremors present Neuro: Alert, oriented and coperative. Result Diagrams: 04/16/19 05:02 04/16/19 05:02 Additional Lab and Data: Lab Results 04/14/19 04/14/19 04/14/19 Range/Units 02:50 02:50 02:50 WBC 10.3 (3.5-10.8) 10^3/uL RBC 5.33 (4.18-5.48) 10^6 /uL Hgb 17.8 (14.0-18.0) g/dL Hct 52 (42-52) % MCV 97 H (80-94) fL MCH 34 H (27-31) pg MCHC 35 (31-36) g/dL RDW 13 (10-15) % Plt Count 186 (150-450) 10^3/uL MPV 7.7 (7.4-10.4) fL Neut % (Auto) 80.4 % Lymph % (Auto) 9.9 % Lamoure % (Auto) 9.2 % Eos % (Auto) 0.0 % Baso % (Auto) 0.5 % Absolute Neuts (auto) 8.3 H (1.5-7.7) 10^3/ul Absolute Lymphs (auto) 1.0 (1.0-4.8) 10^3/ul Absolute Monos (auto) 0.9 H (0-0.8) 10^3/ul Absolute Eos (auto) 0.0 (0-0.6) 10^3/ul Absolute Basos (auto) 0.1 (0-0.2) 10^3/ul Absolute Nucleated RBC 0.0 10^3/ul Nucleated RBC % 0.0 INR (Anticoag Therapy) 1.06 (0.82-1.09) Sodium 134 L (135-145) mmol/L Potassium 3.7 (3.5-5.0) mmol/L Chloride 96 L (101-111) mmol/L Carbon Dioxide 24 (22-32) mmol/L Anion Gap 14 H (2-11) mmol/L BUN 10 (6-24) mg/dL Creatinine 0.89 (0.67-1.17) mg/dL Est GFR ( Amer) 108.2 (>60) Est GFR (Non-Af Amer) 89.4 (>60) BUN/Creatinine Ratio 11.2 (8-20) Glucose 148 H (70-100) mg/dL Lactic Acid (0.5-2.0) mmol/L Calcium 9.1 (8.6-10.3) mg/dL Total Bilirubin 0.70 (0.2-1.0) mg/dL AST 77 H (13-39) U/L ALT 77 H (7-52) U/L Alkaline Phosphatase 64 (34-104) U/L C-Reactive Protein 28.36 H (<8.01) mg/L Total Protein 7.8 (6.4-8.9) g/dL Albumin 4.5 (3.2-5.2) g/dL Globulin 3.3 (2-4) g/dL Albumin/Globulin Ratio 1.4 (1-3) Amylase 1206 H (29-103) U/L Lipase 3412 H (11.0-82.0) U/L Serum Alcohol 164 H (<10) mg/dL 04/14/19 Range/Units 02:50 WBC (3.5-10.8) 10^3/uL RBC (4.18-5.48) 10^6 /uL Hgb (14.0-18.0) g/dL Hct (42-52) % MCV (80-94) fL MCH (27-31) pg MCHC (31-36) g/dL RDW (10-15) % Plt Count (150-450) 10^3/uL MPV (7.4-10.4) fL Neut % (Auto) % Lymph % (Auto) % [place] % (Auto) % Eos % (Auto) % Baso % (Auto) % Absolute Neuts (auto) (1.5-7.7) 10^3/ul Absolute Lymphs (auto) (1.0-4.8) 10^3/ul Absolute Monos (auto) (0-0.8) 10^3/ul Absolute Eos (auto) (0-0.6) 10^3/ul Absolute Basos (auto) (0-0.2) 10^3/ul Absolute Nucleated RBC 10^3/ul Nucleated RBC % INR (Anticoag Therapy) (0.82-1.09) Sodium (135-145) mmol/L Potassium (3.5-5.0) mmol/L Chloride (101-111) mmol/L Carbon Dioxide (22-32) mmol/L Anion Gap (2-11) mmol/L BUN (6-24) mg/dL Creatinine (0.67-1.17) mg/dL Est GFR ( Amer) (>60) Est GFR (Non-Af Amer) (>60) BUN/Creatinine Ratio (8-20) Glucose (70-100) mg/dL Lactic Acid 2.3 H* (0.5-2.0) mmol/L Calcium (8.6-10.3) mg/dL Total Bilirubin (0.2-1.0) mg/dL AST (13-39) U/L ALT (7-52) U/L Alkaline Phosphatase (34-104) U/L C-Reactive Protein (<8.01) mg/L Total Protein (6.4-8.9) g/dL Albumin (3.2-5.2) g/dL Globulin (2-4) g/dL Albumin/Globulin Ratio (1-3) Amylase (29-103) U/L Lipase (11.0-82.0) U/L Serum Alcohol (<10) mg/dL Assess/Plan/Problems-Billing Assessment: 53 y/o M with history of HTN and alcohol use disorder presents with acute severe epigastric pain associated with nausea and vomiting after drinking 4 drinks of vodka. Found to have Pancreatitis, Anion gap MA and alcohol intoxication. stay c/b withdrawal - Patient Problems (1) Pancreatitis Current Visit: Yes Status: Acute Code(s): K85.90 - ACUTE PANCREATITIS WITHOUT NECROSIS OR INFECTION, UNSP SNOMED Code(s): 71949908 Comment: -Improving; no symptom and sign -lactic acid normal -WBC normal -Calcium increasing to normal -tolerted PO -dc today (2) High anion gap metabolic acidosis Current Visit: Yes Status: Acute Code(s): E87.2 - ACIDOSIS SNOMED Code(s) : 17694890 Comment: -resolved (3) Alcohol use disorder Current Visit: Yes Status: Acute Code(s): EFP6177 - SNOMED Code(s): 8976270 Comment: -has been drinking 12-15 drinks per day for years -was sober for 6 years 15 years ago. -recently moved to [place] from [place] -trigerred by stress -serum alcohol 164 -improving -scoring low on wam -on librium (4) Depression Current Visit: Yes Status: Acute Code(s): F32.9 - MAJOR DEPRESSIVE DISORDER , SINGLE EPISODE, UNSPECIFIED SNOMED Code(s): 67470724 Comment: -clinical social work aide consult placed -started on cymbalta (5) Hypertension Current Visit: Yes Status: Acute Code(s): I10 - ESSENTIAL (PRIMARY) HYPERTENSION SNOMED Code(s): 60824524 Comment: -on lisinopril (6) DVT prophylaxis Current Visit: Yes Status: Acute Code(s): Z29.9 - ENCOUNTER FOR PROPHYLACTIC MEASURES, UNSPECIFIED SNOMED Code(s): 859145860 Comment: -on lovenox (7) Full code status Current Visit: Yes Status: Acute Code(s): Z78.9 - OTHER SPECIFIED HEALTH STATUS SNOMED Code(s): 560265912 Status and Disposition: Inpatient Attending: Virginia Asif Attestation Documenting Resident: Valeriano Stanton Supervising Physician: Virginia Asif Attestation: This service has been performed in part by a resident under the direction of a teaching physician.I, Virginia Asif, performed the service, or was physically present during the critical, or bhatia portions of the service, furnished by the resident. I participated in the management of the patient.
[2019-04-16] MEDS ORDERED: DULoxetine DR CAP* 30 MG CAP.DR PO SCH (09:00)
[2019-04-16] MEDS: chlordiazePOXIDE CAP* 25 MG PO SCH (09:02)
[2019-04-16] MEDS: Lisinopril TAB* 10 MG PO SCH (09:02)
[2019-04-16] MEDS: Thiamine INJ* 100 MG in NS 0.9% 50 ML* 50 ML IV SCH (09:08)
[2019-04-16] MEDS: Folic Acid IV* 1 MG/0.2 ML SYRINGE IV SCH (09:08)
--- NOTE | 2019-04-16 10:31 | DS ---
CC: [facility] DISCHARGE SUMMARY: DATE OF ADMISSION: 04/14/19 DATE OF DISCHARGE: 04/16/19 PRIMARY CARE PROVIDER: Barbara Wright. He has a followup appointment with on 04/26/19 at 2 p.m. DISPOSITION AT THE TIME OF DISCHARGE: Stable to be discharged to home. PRIMARY DIAGNOSES: 1. Alcohol-induced pancreatitis. 2. Alcohol withdrawal. 3. Thrombocytopenia, mild. SECONDARY DIAGNOSES: 1. Alcohol use disorder, moderate to severe, with daily drinking of 15 to 20 drinks of hard liquor. 2. Depression. 3. Obesity. 4. Hypertension. MEDICATIONS AT THE TIME OF DISCHARGE: 1. Chlordiazepoxide Librium 25 mg p.o. q.p.m. for additional 2 days status post discharge, then stop. 2. Duloxetine 30 mg p.o. daily. 3. Lisinopril 20 mg p.o. daily. 4. Multivitamin 1 tab p.o. daily. 5. Naltrexone 50-100mg PO BID PRN for craving MEDICATION CHANGES ON THIS HOSPITALIZATION: Include the discontinuation of clonazepam and adding of Librium for continued withdrawal taper to be completed 2 days status post discharge, as well as PRN Naltrexone. HISTORY OF PRESENT ILLNESS AND HOSPITAL COURSE: This is a 53-year-old male with past medical history of alcohol use disorder, alcohol dependence, hypertension, and depression who presented to the hospital with acute abdominal pain and vomiting for the duration of 1 day in the emergency room. His vital signs were initially stable. Imaging and labs were done, which revealed acute pancreatitis and a blood alcohol level of 146 along with an anion gap metabolic acidosis, mildly elevated lactic acid, thrombocytopenia because of his labs and imaging of acute pancreatitis and concern for alcohol withdrawal. Patient was admitted to the hospitalist service and his hospital course by problem is as follows: 1. Acute pancreatitis. His BISAP score on admission was 1 pertaining on low mortality. He was placed on n.p.o. diet aggressive IV fluids and by hospital day 2 he was able to advance his diet to clears and then tolerated regular diet without pain. He actually required minimal pain control throughout. His lipase on admission was elevated to 3412 and was not checked again. His triglycerides were normal. His TSH was normal. He had no evidence of cholestatic LFTs and this was thought to be all from alcohol induced given his longstanding history of alcohol. His calcium levels did fall slightly on hospital day 2 from 9.1 to 7.9, unclear what the etiology of this was, he clinically was improving, had no signs of necrosis. From a clinical standpoint , his belly pain had wholly resolved, possibly this is all secondary to aggressive fluid rehydration. If the patient has pain in the near future, could consider a repeat CT abdomen pelvis to check for local complications of acute pancreatitis such as pseudocyst, which often will form in 2 to 4 weeks status post acute pancreatitis to begin with. As per this problem, the patient' s BISAP score is 1, therefore likely low risk and he is tolerating low-fat diet on day of discharge. 2. Alcohol dependence complicated by acute alcohol withdrawal. The patient has been drinking daily for the last 15 years. His last period of documented sobriety was 15 years ago where he was sober for 6 years at the request of a child at that time. The patient has recently relocated from [place] to [place] and has had increasing stress with a new job at [employer]. He is drinking 15 to 20 shots of vodka daily and has never stopped. This is the first time that he has encountered alcohol withdrawal. His Ativan and Valium needs were very high on hospital day 1, but did not need benzodiazepine drip or any other seizure prophylaxis. He was placed on standing Valium to help minimize his WAM or his CIWA p.r.n. scores. By hospital day #2, the patient was scoring very low on CIWA, mostly from hypertension and tachycardia, which patient reports he has at baseline this tremor and sweating had diminished considerably, his nausea had diminished and he was feeling well. He was placed on a Librium taper given his ongoing mild hypertension signs of autonomic surge and meets criteria for [id number] alcohol withdrawal, which can be treated as an outpatient. He is a reliable historian and can be trusted to be discharged on long-acting benzodiazepine. He has been counseled not to drink. Of note, the patient was on high doses of clonazepam that he was taking intermittently prior to this admission and he has no further clonazepam and in favor of returning to this as it was not regularly used or prescribed, a Librium taper is appropriate from a benzodiazepine withdrawal standpoint as well if there is any component of this. In regards to his alcohol dependence, long-standing, Social Work consult was placed and the primary team had extensive conversations with him about optimizing his health and exploring options for sobriety, information on naltrexone and other pharmacotherapy to help with cravings was given to him. He did say that he was interested in seeing a counselor. He declined AA or any other addiction service treatments as an outpatient. We counseled him to take a multivitamin. 3. Thrombocytopenia. Platelets on day of discharge were in the 130s where they remained. This is assumed to be secondary to bone marrow suppression in the context of longstanding alcohol use and can be followed up as an outpatient. He has no petechiae or bleeding disorders. 3. Elevated transaminases. AST and ALT are mildly elevated on admission in the 70s. They stayed stable and liver ultrasound was done, which showed hepatic steatosis but no evidence of cirrhosis or tumor, most likely this represents a multifactorial injury to the liver with ongoing alcohol dependence and abuse as well as some component of fatty liver, can be followed up on as an outpatient. 4. Depression. The patient is prescribed duloxetine, which he takes intermittently and this was prescribed for him on discharge and strongly counseled to follow up with counselor and primary care provider. This is done to determine if underlying depression and anxiety continue to drive his drinking behavior. 5. Lactic acidosis was resolved with fluids. 6. DVT prophylaxis: The patient was placed on enoxaparin. 7. Hypertension. The patient is on lisinopril. This is continued and restarted on hospital day 2 after the patient was out of his severe withdrawal phase. On day of discharge patient is ambulating and tolerating diet, having bowel movements, he is out of window for seizures or severe withdrawal, continues to have mild withdrawal symptoms for which he can take Librium for. He is very eager to be discharged and our team has done as much as we can to help him to be successful given the limited interventions he has accepted. LAB AND STUDIES DONE DURING THIS HOSPITALIZATION: Labs on day of discharge on 04/16/19, white blood cell count 7.4, hemoglobin is 13.5, hematocrit 39, and platelets are 131. Sodium is 133, potassium is 3.6, chloride is 100, carbon dioxide is 24, BUN is 10, creatinine 0.88 and glucose is 95, calcium is 7.9. AST and ALT have returned to normal at 34 and 35 on 04/15/19. TSH was 4.42 and A1c was done during this hospitalization given mildly elevated glucose and A1c is 6.1. Cholesterol was done that shows triglycerides 84, cholesterol 155, LDL 62 and HDL 76.2. Imaging includes abdomen and pelvis CT on 04/14/19, which shows acute pancreatitis with no focal necrosis. Chest x-ray on 04/14/19 shows no acute intrathoracic pathology and EKG done 04/14/19 shows sinus tachycardia with no acute signs of ischemia and liver ultrasound was done on 04/14/19 which showed fatty liver, but no other signs of mass or pathology. Consults during this hospitalization were none. ITEMS TO FOLLOWUP ON STATUS POST DISCHARGE: 1. Alcohol dependence and use disorder. The patient's largest medical problem remains his inappropriate relationship with alcohol. He was counseled by our primary team to seek counseling and chemical dependency as well as mental health counseling to help sort this out. He is continued on duloxetine. He is discharged on a brief Librium taper, which was started in the hospital at t.i.d. , then b.i.d., then q. day, to be finished on 04/17/19 for mild withdrawal. He was counseled not to drink. He has been using clonazepam intermittently and Librium taper will also help if there is any component of benzodiazepine withdrawal, although he is not using clonazepam regularly enough to cause benzo dependence. 2. Thrombocytopenia, this is most likely related to alcohol use disorder, can be monitored in the future. 3. Acute pancreatitis. The patient had no signs of immediate focal complications of local pancreatitis. If he continues to have abdominal pain, would recommend repeating abdominal CT to see if calcifications, pseudocysts have developed in the interim of which he is at risk for given his high lipase on admission. TIME SPENT ON THIS DISCHARGE: Sixty-five minutes was spent in the planning of this discharge with over half of that spent directly at the bedside of the patient providing direct patient care. Plan of care discussed with the patient. There is no further questions. This discharge summary is a distillation of 3 days hospitalization. If there are any questions about the care of the patient during this hospitalization, please do not hesitate to reach out or contact me directly my cell phone [phone]. A physical exam was performed on the day of discharge, could be seen in the progress note. [id number]/[facility] #: [id number] [facility] HOSPITALMargarita
[2019-04-16 12:38] VITALS: BP 125/81
[2019-04-17] MEDS ORDERED: Influenza VAC *QUAD* 2019-20* 0.5 ML SYRINGE IM ONE (09:00)
== END 2019-04-16 15:16 | disposition home or self-care (01) | DRG 439 ==
LOC: ED 01:28 → MEDTELE 07:05
PROVIDERS: ADMIT Student in an Organized Health Care Education/Training Program; ATTEND Internal Medicine
DX: K85.20 Alcohol induced acute pancreatitis without necrosis or infection (principal); E87.2 Acidosis; F10.239 Alcohol dependence with withdrawal, unspecified; D69.6 Thrombocytopenia, unspecified; D59.5 Paroxysmal nocturnal hemoglobinuria [Marchiafava-Micheli]; K76.0 Fatty (change of) liver, not elsewhere classified; F32.9 Major depressive disorder, single episode, unspecified; F10.229 Alcohol dependence with intoxication, unspecified; I10 Essential (primary) hypertension; R00.0 Tachycardia, unspecified; E78.5 Hyperlipidemia, unspecified; E66.9 Obesity, unspecified; Y90.6 Blood alcohol level of 120-199 mg/100 ml; R74.0 Nonspecific elevation of levels of transaminase and lactic acid dehydrogenase [LDH]; Z68.32 Body mass index [BMI] 32.0-32.9, adult; Z79.899 Other long term (current) drug therapy
CPT/HCPCS: 36415; 71045; 74177; 76705; 80048; 80053; 80061; 80076; 80320; 81003; 81015; 82150; 82310; 83036; 83605; 83615; 83690; 83735; 84443; 85025; 85610; 86140; 87040; 87086; 93005; 96361; 96374; 96375; 99284; A9270-GY; G0480; J0360; J1170; J1650; J1885; J2060; J2270; J3360; J3411; J3475; Q9967

== ENCOUNTER 2020-05-25 12:42 | Inpatient (IN) ==
[2020-05-25] MEDS ORDERED: Ondansetron 4 mg VIAL 2 MG/ML 2 ml VIAL IV ONE (14:26)
[2020-05-25] MEDS ORDERED: NS 0.9% 1000 ml BAG 1,000 ML IV ONE (14:26)
[2020-05-25] MEDS ORDERED: Morphine 4 MG/ML VIAL (1 ml) IV ONE (14:26)
[2020-05-25 14:56] LABS: ABS Basophils 0.1 10^3/ul (0-0.2); ABS Eosinophils 0.1 10^3/ul (0-0.6); ABS Lymphocytes 1.6 10^3/ul (1.0-4.8); ABS Monocytes 1.1 10^3/ul (0-0.8); ABS Neutrophils 8.1 10^3/ul (1.5-7.7); Eosinophil % 0.7 %; Hematocrit 49 % (42-52); Hemoglobin 17.1 g/dL (14.0-18.0); Lymphocyte % 14.6 %; Mean Corpuscular HGB Conc 35 g/dL (31-36); Mean Corpuscular Hemoglobin 34 pg (27-31); Mean Corpuscular Volume 95 fL (80-94); Platelet Count 262 10^3/uL (150-450); Red Blood Count 5.08 10^6 /uL (4.18-5.48); Red Cell Distribution Width 17 % (10-15)
[2020-05-25 15:11] LABS: Albumin 5.2 g/dL (3.2-5.2); Albumin/Globulin Ratio 1.3 (1-3); BUN/Creatinine Ratio 14.5 (8-20); Calcium 9.8 mg/dL (8.6-10.3); EGFR African American 52.5 (>60); EGFR Non-African American 43.4 (>60); Globulin 3.9 g/dL (2-4); Magnesium 1.3 mg/dL (1.9-2.7); Potassium 4.1 mmol/L (3.5-5.0); Total Bilirubin 1.1 mg/dL (0.2-1.0); Total Protein 9.1 g/dL (6.4-8.9)
[2020-05-25] MEDS ORDERED: Magnesium Sulfate 2 gm BAG 2 GM/50 ML BAG IVPB ONE ×2 (16:19→18:02)
[2020-05-25] MEDS ORDERED: Thiamine 100 MG/ML 2 ml VIAL (200 mg) IM ONE (17:34)
[2020-05-25] MEDS ORDERED: MEDICAL MARIJUANA INH PRN (18:14)
[2020-05-25 18:17] LABS: INR 1.12 (0.82-1.09)
[2020-05-25 18:28] LABS: HDL Cholesterol 88.3 mg/dL
[2020-05-25] MEDS ORDERED: Enoxaparin 40 MG/0.4 ML SYR SUBCUT SCH (21:00)
[2020-05-25] MEDS: Lactated Ringers 1000 ml BAG 1,000 ML IV SCH (23:30)
[2020-05-26] MEDS: Morphine 2 MG/ML SYRINGE IV PRN ×6 (04:01→17:07)
[2020-05-26] MEDS: Ondansetron 4 mg VIAL 2 MG/ML 2 ml VIAL IV PRN (04:08)
[2020-05-26] MEDS: Lactated Ringers 1000 ml BAG 1,000 ML IV SCH ×5 (06:08→23:13)
[2020-05-26 06:28] LABS: Albumin 4.5 g/dL (3.2-5.2); Albumin/Globulin Ratio 1.3 (1-3); EGFR African American 52.1 (>60); EGFR Non-African American 43.1 (>60); Globulin 3.4 g/dL (2-4); Potassium 4.5 mmol/L (3.5-5.0); Total Bilirubin 1.2 mg/dL (0.2-1.0); Total Protein 7.9 g/dL (6.4-8.9)
[2020-05-26 06:33] LABS: ABS Lymphocytes 0.8 10^3/ul (1.0-4.8); ABS Monocytes 0.8 10^3/ul (0-0.8); ABS Neutrophils 8.4 10^3/ul (1.5-7.7); Eosinophil % 0.3 %; Hematocrit 42 % (42-52); Lymphocyte % 7.8 %; Mean Corpuscular HGB Conc 36 g/dL (31-36); Mean Corpuscular Hemoglobin 34 pg (27-31); Mean Corpuscular Volume 96 fL (80-94); Mean Platelet Volume 8.2 fL (7.4-10.4); Nucleated Red Blood Cells % 0.1; Platelet Count 197 10^3/uL (150-450); Red Blood Count 4.43 10^6 /uL (4.18-5.48); Red Cell Distribution Width 17 % (10-15)
[2020-05-26] MEDS: Multivitamins/Minerals TAB PO SCH (09:31)
[2020-05-26] MEDS: DULoxetine DR 30 mg CAP PO SCH (09:31)
[2020-05-26] MEDS: Enoxaparin 60 MG/0.6 ML SYR SUBCUT SCH (13:39)
[2020-05-26 15:46] LABS: C Reactive Protein 92.26 mg/L (<8.01)
[2020-05-26 17:19] LABS: HIV 4th Generation Nonreactive (Nonreactive)
[2020-05-27] MEDS: Enoxaparin 60 MG/0.6 ML SYR SUBCUT SCH ×2 (01:20→15:55)
[2020-05-27 06:51] LABS: Hematocrit 41 % (42-52); Hemoglobin 13.9 g/dL (14.0-18.0); Mean Corpuscular HGB Conc 35 g/dL (31-36); Mean Corpuscular Hemoglobin 33 pg (27-31); Mean Corpuscular Volume 97 fL (80-94); Mean Platelet Volume 8.6 fL (7.4-10.4); Platelet Count 144 10^3/uL (150-450); Red Blood Count 4.19 10^6 /uL (4.18-5.48); Red Cell Distribution Width 17 % (10-15); White Blood Count 25.7 10^3/uL (3.5-10.8)
[2020-05-27 07:08] LABS: BUN/Creatinine Ratio 20.3 (8-20); Calcium 8.1 mg/dL (8.6-10.3); EGFR Non-African American 53.7 (>60)
[2020-05-27 07:10] LABS: Potassium 5.2 mmol/L (3.5-5.0)
[2020-05-27] MEDS: DULoxetine DR 30 mg CAP PO SCH (08:24)
[2020-05-27] MEDS: Multivitamins/Minerals TAB PO SCH (08:24)
[2020-05-27] MEDS ORDERED: Pneumococcal Vac 23-Polyvalent IM ONE (09:00)
[2020-05-27 09:16] LABS: ABS Basophils 0.1 10^3/ul (0-0.2); ABS Lymphocytes 0.7 10^3/ul (1.0-4.8); ABS Monocytes 1.2 10^3/ul (0-0.8); ABS Neutrophils 23.7 10^3/ul (1.5-7.7); Lymphocyte % 2.8 %
[2020-05-27] MEDS ORDERED: cefTRIAXone 2 GM ADDV.VIAL 2 GM in NS 0.9% 100 ml BAG 100 ML IV ONE (13:00)
[2020-05-27] MEDS ORDERED: Thiamine 100 MG/ML 2 ml VIAL (200 mg) IM ONE (13:46)
[2020-05-27] MEDS ORDERED: Lactated Ringers 1000 ml BAG 1,000 ML IV ONE (13:47)
[2020-05-27] MEDS ORDERED: Lorazepam PYXIS KEY PRN (13:54)
[2020-05-27] MEDS ORDERED: LORazepam 2 mg VIAL 1 ml IV PUSH SCH (14:00)
[2020-05-27 14:37] LABS: Hematocrit 39 % (42-52); Hemoglobin 13.4 g/dL (14.0-18.0); Mean Corpuscular HGB Conc 35 g/dL (31-36); Mean Corpuscular Hemoglobin 34 pg (27-31); Mean Corpuscular Volume 97 fL (80-94); Mean Platelet Volume 9.5 fL (7.4-10.4); Platelet Count 143 10^3/uL (150-450); Red Blood Count 3.99 10^6 /uL (4.18-5.48); Red Cell Distribution Width 18 % (10-15); White Blood Count 26.7 10^3/uL (3.5-10.8)
[2020-05-27] MEDS ORDERED: Thiamine 100 MG/ML 2 ml VIAL 100 MG, Folic Acid 1 MG, Multiple Vitamin IV ADULT 10 ML i... IV ONE ×2 (14:51→15:30)
[2020-05-27 15:00] LABS: BUN/Creatinine Ratio 20.5 (8-20); Blood Urea Nitrogen 33 mg/dL (6-24); CO2 Carbon Dioxide 21 mmol/L (22-32); Calcium 8.1 mg/dL (8.6-10.3); Chloride 91 mmol/L (101-111); EGFR African American 54.4 (>60); EGFR Non-African American 44.9 (>60); Glucose 313 mg/dL (70-100); Phosphorus 2.2 mg/dL (2.5-5.0); Sodium 123 mmol/L (135-145)
[2020-05-27] MEDS ORDERED: Lactated Ringers 1000 ml BAG 1,000 ML IV SCH (15:00)
[2020-05-27 15:03] LABS: Anion Gap 11 mmol/L (2-11)
[2020-05-27 15:17] LABS: Lipase 205 U/L (11.0-82.0)
[2020-05-27 15:19] LABS: ABS Lymphocytes 0.8 10^3/ul (1.0-4.8); ABS Monocytes 1.5 10^3/ul (0-0.8); ABS Neutrophils 24.3 10^3/ul (1.5-7.7); Lymphocyte % 3.1 %
[2020-05-27 16:06] LABS: Magnesium 1.3 mg/dL (1.9-2.7)
[2020-05-27 16:08] LABS: Potassium Redraw 5.3 mmol/L (3.5-5.0)
[2020-05-27] MEDS ORDERED: Magnesium Sulfate IV 3 GM in NS 0.9% 100 ml BAG 100 ML IVPB ONE (16:30)
[2020-05-27] MEDS ORDERED: Dextrose 50% Syringe 50 ml 25 GM/50 ML SYRINGE IV PUSH PRN (17:38)
[2020-05-27] MEDS: Dexmedetomidine 1,000 MCG in NS 0.9% 250 ml 240 ML IV SCH (17:40)
[2020-05-27 19:08] LABS: Glucose 300 mg/dL (70-100)
[2020-05-27] MEDS: Lactated Ringers 1000 ml BAG 1,000 ML IV SCH (22:12)
[2020-05-28] MEDS: Enoxaparin 60 MG/0.6 ML SYR SUBCUT SCH ×2 (01:34→12:19)
[2020-05-28] MEDS: Dexmedetomidine 1,000 MCG in NS 0.9% 250 ml 240 ML IV SCH (05:00)
[2020-05-28 06:42] LABS: Hematocrit 36 % (42-52); Mean Corpuscular HGB Conc 34 g/dL (31-36); Mean Corpuscular Hemoglobin 34 pg (27-31); Mean Corpuscular Volume 100 fL (80-94); Mean Platelet Volume 9.9 fL (7.4-10.4); Platelet Count 139 10^3/uL (150-450); Red Blood Count 3.57 10^6 /uL (4.18-5.48); Red Cell Distribution Width 18 % (10-15); White Blood Count 20.4 10^3/uL (3.5-10.8)
[2020-05-28 07:05] LABS: Albumin 3.3 g/dL (3.2-5.2); Albumin/Globulin Ratio 1.1 (1-3); BUN/Creatinine Ratio 21.7 (8-20); Calcium 7.9 mg/dL (8.6-10.3); EGFR African American 49.4 (>60); EGFR Non-African American 40.8 (>60); Globulin 3.1 g/dL (2-4); Magnesium 2.3 mg/dL (1.9-2.7); Phosphorus 2.6 mg/dL (2.5-5.0); Potassium 4.7 mmol/L (3.5-5.0); Total Bilirubin 0.8 mg/dL (0.2-1.0); Total Protein 6.4 g/dL (6.4-8.9)
[2020-05-28 07:12] LABS: ABS Basophils 0.2 10^3/ul (0-0.2); ABS Eosinophils 0.1 10^3/ul (0-0.6); ABS Monocytes 1.7 10^3/ul (0-0.8); ABS Neutrophils 17.5 10^3/ul (1.5-7.7); Eosinophil % 0.4 %; Lymphocyte % 4.9 %
[2020-05-28] MEDS: Lactated Ringers 1000 ml BAG 1,000 ML IV SCH ×2 (07:50→17:12)
[2020-05-28] MEDS ORDERED: Cyanocobalamin INJ 1,000 MCG/ML VIAL 1 ML VIAL IM ONE (08:15)
[2020-05-28] MEDS ORDERED: Thiamine 100 MG/ML 2 ml VIAL (200 mg) IV SCH (09:00)
[2020-05-28] MEDS ORDERED: Folic Acid 1 mg SYRINGE 0.2 ML SYRINGE IV SCH (09:00)
[2020-05-28] MEDS: Pantoprazole VIAL 40 MG VIAL IV SCH (10:29)
[2020-05-28] MEDS: FOLIC ACID IVPB SCH (10:32)
[2020-05-28] MEDS: NS 0.9% IVPB SCH (10:32)
[2020-05-28] MEDS: THIAMINE IVPB SCH (10:32)
[2020-05-28] MEDS ORDERED: Acetaminophen IV 1 GM/100ML 100 ML IVPB ONE (14:06)
[2020-05-28] MEDS ORDERED: Iodixanol (CONTRAST) 320 MG/ML 100 ML SDV IV ONE (14:25)
[2020-05-28 16:47] LABS: Albumin 3.1 g/dL (3.2-5.2); BUN/Creatinine Ratio 25.8 (8-20); Calcium 7.8 mg/dL (8.6-10.3); EGFR African American 55.2 (>60); EGFR Non-African American 45.6 (>60); Potassium 4.2 mmol/L (3.5-5.0); Total Bilirubin 0.8 mg/dL (0.2-1.0); Total Protein 6.1 g/dL (6.4-8.9)
[2020-05-28] MEDS ORDERED: cefTRIAXone 1 gm/50 mL NS BAG 1 GM/50 ML BAG IV ONE (17:00)
[2020-05-28] MEDS: Ondansetron 4 mg VIAL 2 MG/ML 2 ml VIAL IV PRN (17:27)
[2020-05-28 18:53] LABS: Urine Appearance Cloudy; Urine Bilirubin Negative (Negative); Urine Blood 3+ (Negative); Urine Color Yellow; Urine Glucose 2+(150 mg/dL) (Negative); Urine Ketones 1+ (Negative); Urine Nitrite Negative (Negative); Urine Protein 1+(30 mg/dL) (Negative); Urine Specific Gravity 1.047 (1.010-1.030); Urine Urobilinogen Negative (Negative)
[2020-05-28 18:55] LABS: Urine Bacteria Absent (Absent); Urine Red Blood Cell 3+(>10/hpf) (Absent); Urine White Blood Cell Absent (Absent)
[2020-05-28] MEDS: Meropenem 1 GM PREMIX(*) 1 GM/50 ML BAG IV SCH (20:32)
[2020-05-29] MEDS: fentaNYL 100 mcg/2 ml 50 MCG/ML VIAL IV SLOW PU PRN ×2 (02:04→07:30)
[2020-05-29] MEDS: Enoxaparin 60 MG/0.6 ML SYR SUBCUT SCH (02:05)
[2020-05-29] MEDS: Meropenem 1 GM PREMIX(*) 1 GM/50 ML BAG IV SCH ×3 (03:11→19:34)
[2020-05-29] MEDS: Lactated Ringers 1000 ml BAG 1,000 ML IV SCH ×3 (05:30→19:11)
[2020-05-29 05:42] LABS: Hematocrit 34 % (42-52); Hemoglobin 11.5 g/dL (14.0-18.0); Mean Corpuscular HGB Conc 34 g/dL (31-36); Mean Corpuscular Hemoglobin 33 pg (27-31); Mean Corpuscular Volume 100 fL (80-94); Mean Platelet Volume 9.5 fL (7.4-10.4); Platelet Count 147 10^3/uL (150-450); Red Blood Count 3.44 10^6 /uL (4.18-5.48); Red Cell Distribution Width 18 % (10-15); White Blood Count 17.4 10^3/uL (3.5-10.8)
[2020-05-29 06:05] LABS: Albumin 2.9 g/dL (3.2-5.2); Albumin/Globulin Ratio 0.9 (1-3); BUN/Creatinine Ratio 25.3 (8-20); Calcium 7.8 mg/dL (8.6-10.3); EGFR African American 95.3 (>60); EGFR Non-African American 78.8 (>60); Globulin 3.1 g/dL (2-4); Magnesium 1.6 mg/dL (1.9-2.7); Phosphorus 1.7 mg/dL (2.5-5.0); Potassium 4.1 mmol/L (3.5-5.0); Total Bilirubin 0.8 mg/dL (0.2-1.0)
[2020-05-29 06:44] LABS: ABS Basophils 0.1 10^3/ul (0-0.2); ABS Eosinophils 0.1 10^3/ul (0-0.6); ABS Lymphocytes 1.1 10^3/ul (1.0-4.8); ABS Monocytes 2.3 10^3/ul (0-0.8); ABS Neutrophils 13.8 10^3/ul (1.5-7.7); Eosinophil % 0.5 %; Lymphocyte % 6.5 %
[2020-05-29] MEDS: Pantoprazole VIAL 40 MG VIAL IV SCH (09:20)
[2020-05-29] MEDS ORDERED: Magnesium Sulf 4 GM/100 ML IV 4,000 MG/100 ML BAG IVPB ONE (09:34)
[2020-05-29] MEDS: NS 0.9% IVPB SCH (10:05)
[2020-05-29] MEDS: FOLIC ACID IVPB SCH (10:05)
[2020-05-29] MEDS: THIAMINE IVPB SCH (10:05)
[2020-05-29] MEDS: Thiamine 100 MG/ML 2 ml VIAL 100 MG in NS 0.9% 50 ML 50 ML IV SCH (11:01)
[2020-05-29] MEDS ORDERED: Magnesium Sulfate 2 gm BAG 2 GM/50 ML BAG IVPB ONE (16:30)
[2020-05-29] MEDS ORDERED: SODIUM PHOSPHATE IVPB ONE (17:30)
[2020-05-29] MEDS ORDERED: NS IVPB ONE (17:30)
[2020-05-30] MEDS: fentaNYL 100 mcg/2 ml 50 MCG/ML VIAL IV SLOW PU PRN ×3 (01:40→23:49)
[2020-05-30] MEDS: Meropenem 1 GM PREMIX(*) 1 GM/50 ML BAG IV SCH ×3 (03:26→18:31)
[2020-05-30 04:45] LABS: Hematocrit 35 % (42-52); Hemoglobin 12.1 g/dL (14.0-18.0); Mean Corpuscular HGB Conc 35 g/dL (31-36); Mean Corpuscular Hemoglobin 34 pg (27-31); Mean Corpuscular Volume 99 fL (80-94); Mean Platelet Volume 9.2 fL (7.4-10.4); Platelet Count 175 10^3/uL (150-450); Red Blood Count 3.53 10^6 /uL (4.18-5.48); Red Cell Distribution Width 18 % (10-15); White Blood Count 15.1 10^3/uL (3.5-10.8)
[2020-05-30 05:02] LABS: BUN/Creatinine Ratio 15.9 (8-20); Calcium 8.3 mg/dL (8.6-10.3); EGFR African American 109.2 (>60); EGFR Non-African American 90.2 (>60); Magnesium 1.7 mg/dL (1.9-2.7); Phosphorus 2.5 mg/dL (2.5-5.0)
[2020-05-30] MEDS ORDERED: Magnesium Sulf 4 GM/100 ML IV 4,000 MG/100 ML BAG IVPB ONE (08:00)
[2020-05-30] MEDS: Pantoprazole VIAL 40 MG VIAL IV SCH (08:21)
[2020-05-30] MEDS: Enoxaparin 40 MG/0.4 ML SYR SUBCUT SCH (08:22)
[2020-05-30] MEDS ORDERED: Magnesium Sulfate 2 gm BAG 2 GM/50 ML BAG IVPB ONE (09:03)
[2020-05-30] MEDS: NS 0.9% IVPB SCH (10:33)
[2020-05-30] MEDS: FOLIC ACID IVPB SCH (10:33)
[2020-05-30] MEDS: THIAMINE IVPB SCH (10:33)
[2020-05-30] MEDS: Thiamine 100 MG/ML 2 ml VIAL 100 MG in NS 0.9% 50 ML 50 ML IV SCH (10:42)
[2020-05-30] MEDS ORDERED: Remdesivir 5 MG/ML LIQ IV Vial 200 MG in NS 0.9% 250 ml 210 ML IV ONE (13:00)
[2020-05-31] MEDS: Meropenem 1 GM PREMIX(*) 1 GM/50 ML BAG IV SCH ×3 (02:27→18:56)
[2020-05-31 05:24] LABS: Hematocrit 35 % (42-52); Mean Corpuscular HGB Conc 34 g/dL (31-36); Mean Corpuscular Hemoglobin 34 pg (27-31); Mean Corpuscular Volume 98 fL (80-94); Mean Platelet Volume 9.3 fL (7.4-10.4); Platelet Count 206 10^3/uL (150-450); Red Blood Count 3.55 10^6 /uL (4.18-5.48); Red Cell Distribution Width 18 % (10-15)
[2020-05-31 05:46] LABS: Calcium 8.4 mg/dL (8.6-10.3); EGFR African American 121.9 (>60); EGFR Non-African American 100.7 (>60); Magnesium 1.7 mg/dL (1.9-2.7); Phosphorus 3.4 mg/dL (2.5-5.0); Potassium 4.8 mmol/L (3.5-5.0)
[2020-05-31] MEDS ORDERED: Magnesium Sulf 4 GM/100 ML IV 4,000 MG/100 ML BAG IVPB ONE (07:24)
[2020-05-31] MEDS: Enoxaparin 40 MG/0.4 ML SYR SUBCUT SCH (08:50)
[2020-05-31] MEDS: Pantoprazole VIAL 40 MG VIAL IV SCH (08:50)
[2020-05-31] MEDS: THIAMINE IVPB SCH (09:11)
[2020-05-31] MEDS: FOLIC ACID IVPB SCH (09:11)
[2020-05-31] MEDS: NS 0.9% IVPB SCH (09:11)
[2020-05-31] MEDS: Thiamine 100 MG/ML 2 ml VIAL 100 MG in NS 0.9% 50 ML 50 ML IV SCH (11:23)
[2020-05-31] MEDS ORDERED: Dextrose 50% Syringe 50 ml 25 GM/50 ML SYRINGE IV PUSH PRN (12:54)
[2020-05-31] MEDS ORDERED: Remdesivir 5 MG/ML LIQ IV Vial 100 MG in NS 0.9% 250 ml 230 ML IV SCH (13:00)
[2020-05-31] MEDS: Insulin GLARGINE 100 un/ml 10 ml VIAL SUBCUT SCH (14:29)
[2020-06-01] MEDS: Meropenem 1 GM PREMIX(*) 1 GM/50 ML BAG IV SCH ×3 (03:53→22:18)
[2020-06-01 04:17] LABS: Hematocrit 35 % (42-52); Hemoglobin 12.1 g/dL (14.0-18.0); Mean Corpuscular HGB Conc 35 g/dL (31-36); Mean Corpuscular Hemoglobin 34 pg (27-31); Mean Corpuscular Volume 98 fL (80-94); Mean Platelet Volume 9.1 fL (7.4-10.4); Platelet Count 297 10^3/uL (150-450); Red Blood Count 3.56 10^6 /uL (4.18-5.48); Red Cell Distribution Width 18 % (10-15); White Blood Count 9.7 10^3/uL (3.5-10.8)
[2020-06-01 04:25] LABS: Magnesium 1.5 mg/dL (1.9-2.7); Potassium 4.7 mmol/L (3.5-5.0)
[2020-06-01 04:31] LABS: BUN/Creatinine Ratio 26.6 (8-20); EGFR African American 123.7 (>60); EGFR Non-African American 102.2 (>60)
[2020-06-01] MEDS ORDERED: Magnesium Sulf 4 GM/100 ML IV 4,000 MG/100 ML BAG IVPB ONE ×2 (07:50→08:11)
[2020-06-01] MEDS: Enoxaparin 40 MG/0.4 ML SYR SUBCUT SCH (08:33)
[2020-06-01] MEDS: Insulin GLARGINE 100 un/ml 10 ml VIAL SUBCUT SCH (08:34)
[2020-06-01] MEDS ORDERED: NS 0.9% 250 ml 250 ML ONE (12:07)
[2020-06-01] MEDS: Remdesivir 100 mg Q24H MAINTENANCE DOSING (LIQ Vial) IV SCH (12:13)
[2020-06-02] MEDS: Meropenem 1 GM PREMIX(*) 1 GM/50 ML BAG IV SCH ×3 (05:35→21:09)
[2020-06-02 09:38] LABS: Hematocrit 35 % (42-52); Hemoglobin 12.1 g/dL (14.0-18.0); Mean Corpuscular HGB Conc 35 g/dL (31-36); Mean Corpuscular Hemoglobin 34 pg (27-31); Mean Corpuscular Volume 97 fL (80-94); Mean Platelet Volume 8.8 fL (7.4-10.4); Platelet Count 330 10^3/uL (150-450); Red Cell Distribution Width 18 % (10-15); White Blood Count 8.8 10^3/uL (3.5-10.8)
[2020-06-02 09:56] LABS: BUN/Creatinine Ratio 31.6 (8-20); Calcium 8.6 mg/dL (8.6-10.3); EGFR African American 129.3 (>60); EGFR Non-African American 106.9 (>60); Magnesium 1.3 mg/dL (1.9-2.7); Phosphorus 3.8 mg/dL (2.5-5.0); Potassium 3.8 mmol/L (3.5-5.0)
[2020-06-02] MEDS ORDERED: Senna TAB 8.6 mg TAB PO PRN (09:57)
[2020-06-02] MEDS ORDERED: Magnesium Hydroxide LIQ 30 ML UDC PO PRN (09:57)
[2020-06-02] MEDS: Insulin GLARGINE 100 un/ml 10 ml VIAL SUBCUT SCH (10:03)
[2020-06-02] MEDS: Enoxaparin 40 MG/0.4 ML SYR SUBCUT SCH (10:03)
[2020-06-02] MEDS: Remdesivir 100 mg Q24H MAINTENANCE DOSING (LIQ Vial) IV SCH (10:50)
[2020-06-03] MEDS: Meropenem 1 GM PREMIX(*) 1 GM/50 ML BAG IV SCH ×3 (06:11→23:05)
[2020-06-03 08:53] LABS: Hematocrit 37 % (42-52); Hemoglobin 12.7 g/dL (14.0-18.0); Mean Corpuscular HGB Conc 35 g/dL (31-36); Mean Corpuscular Hemoglobin 34 pg (27-31); Mean Corpuscular Volume 97 fL (80-94); Platelet Count 408 10^3/uL (150-450); Red Blood Count 3.78 10^6 /uL (4.18-5.48); Red Cell Distribution Width 18 % (10-15)
[2020-06-03 09:00] LABS: BUN/Creatinine Ratio 26.5 (8-20); Calcium 8.8 mg/dL (8.6-10.3); EGFR African American 116.8 (>60); EGFR Non-African American 96.5 (>60); Potassium 4.2 mmol/L (3.5-5.0)
[2020-06-03] MEDS: Remdesivir 100 mg Q24H MAINTENANCE DOSING (LIQ Vial) IV SCH (09:47)
[2020-06-03] MEDS: Insulin GLARGINE 100 un/ml 10 ml VIAL SUBCUT SCH ×2 (09:48→23:10)
[2020-06-03] MEDS: Enoxaparin 40 MG/0.4 ML SYR SUBCUT SCH (10:00)
[2020-06-03 10:03] LABS: ABS Lymphocytes 2.4 10^3/ul (1.0-4.8); ABS Neutrophils 9.5 10^3/ul (1.5-7.7); Eosinophil % 0.2 %; Lymphocyte % 18.8 %; Nucleated Red Blood Cells % 0.1
[2020-06-04] MEDS: Meropenem 1 GM PREMIX(*) 1 GM/50 ML BAG IV SCH ×2 (05:44→13:07)
[2020-06-04] MEDS: Insulin GLARGINE 100 un/ml 10 ml VIAL SUBCUT SCH (08:02)
[2020-06-04] MEDS: Remdesivir 100 mg Q24H MAINTENANCE DOSING (LIQ Vial) IV SCH (09:09)
[2020-06-04] MEDS: Enoxaparin 40 MG/0.4 ML SYR SUBCUT SCH (09:14)
[2020-06-04 10:48] VITALS: BP 145/83
== END 2020-06-04 15:00 | disposition home or self-care (01) | DRG 177 ==
LOC: ED 12:42 → MEDTELE 17:34 → MED 05-26 14:35 → ICU 05-27 12:43 → MED 06-01 13:57
PROVIDERS: ADMIT Internal Medicine; ATTEND Internal Medicine